=== PATIENT | male | born 1935 | race Caucasian/White ===

== ENCOUNTER → 2017-06-24 | Outpatient (CLI) | payer MEDICARE, OTHER ==
[2017-06-24 14:36] LABS: Blood Urea Nitrogen 29 mg/dL (9-20)
--- NOTE | 2017-06-25 09:32 | CT ---
EXAMINATION TYPE: CT ChestAbdPelvis w con DATE OF EXAM: 06/24/2017 COMPARISON: NONE HISTORY: Abnormal lab work and weight loss(R63.4) per order. History of stomach tumor per patient. CT DLP: 1747 mGycm. Automated Exposure Control for Dose Reduction was Utilized. CONTRAST: CT scan of the thorax, abdomen and pelvis is performed with IV Contrast, patient injected with 100 mL of Omnipaque 300. FINDINGS: LUNGS: There is mild underlying emphysematous change with patchy bibasilar lower lung scarring. No deleon spicious nodule or mass is present bilaterally. Tracheobronchial tree is patent. No pleural effusion or pneumothorax is seen bilaterally. MEDIASTINUM: There are no greater than 1 cm hilar or mediastinal lymph nodes. No cardiomegaly or pe ricardial effusion is seen. There is fairly moderate to severe 3 vessel coronary artery calcificatio n which is noted marker for coronary artery disease OTHER: No additional significant abnormality is seen. LIVER/GB: There is mild to moderate extrahepatic biliary dilatation and mild central intrahepatic enrique iary dilatation. There is abrupt narrowing at duodenal ampulla without obstructing stone or mass aj rly seen. No intraluminal CT dense gallstones are seen. There is subcentimeter low dense lesion left hepatic lo be axial image 51 that is too small to further characterize favored benign. Similar lesion is seen ne ar caudate lobe axial image 57. PANCREAS: Pancreatic duct is mildly dilated at head level measuring 5 mm coronal image 47. SPLEEN: No significant abnormality is seen. ADRENALS: No significant abnormality is seen. KIDNEYS: There is symmetric cortical medullary uptake and excretion from both kidneys with 2-3 simple appearing cysts noted bilaterally. BOWEL: The oral contrast reaches level of the proximal right colon. There is no suspicious small bow el dilatation. At the cecum there is irregular large area of wall thickening axial image 86 strongly suspicious for cecal carcinoma terminal ileum is not well-visualized. Appendix is not distinctly seen . There is mild to moderate surrounding fat stranding with scattered small suspicious lymph nodes. Th ere are adjacent abnormal lymph nodes superiorly in the right lower quadrant mesentery with central h ypodensity or necrosis, largest measures 2.0 x 1.2 cm axial image 78. There is mild to moderate diffu se fecal prominence in the colon distal to this. GENITAL ORGANS: Some scattered pelvic phleboliths are seen. LYMPH NODES: Abnormal right lower quadrant lymph nodes noted as detailed above OSSEOUS STRUCTURES: Osseous structures are demineralized. There is nonspecific small sclerotic focus right L3 vertebra coronal image 65. There are 2 subtle lytic lesions in the left iliac bone coronal i mages 76 and 81 respectively. There is narrowing and sclerosis along the sacroiliac joints bilaterally. There is moderate multileve l spurring in the thoracic spine. There is facet arthropathy lower lumbar levels. There is moderate t o advanced joint space loss in both hips. OTHER: No significant additional abnormality is seen. IMPRESSION: 1. Large primary cecal mass or neoplasm not causing significant proximal obstruction currently. Seros al spread with adjacent adenopathy is felt present. Nonspecific bone lesions as detailed above. Advi se colonoscopy follow-up to confirm. 2. Mild to moderate extrahepatic and mild central intrahepatic biliary dilatation, there is mild dila tation of pancreatic duct at head level also narrowing ampulla. Double duct sign is suspicious and un derlying ampullary mass needs to be excluded. ERCP follow-up is advised.
== END | disposition home or self-care (01) ==
LOC: RADCTMAIN 13:57
PROVIDERS: ATTEND Family Medicine
DX: K83.8 Other specified diseases of biliary tract (principal); K86.89 Other specified diseases of pancreas
CPT/HCPCS: 82565; 84520; 71260; 74177; 36415; Q9967

== ENCOUNTER 2017-07-03 11:16 | Day surgery (SDC) | payer MEDICARE, OTHER ==
[2017-07-01 16:56] VITALS: BMI 24.7
[~2017-07-03 11:16] MED LIST: LACTATED RINGERS 1,000 ML IV SCH
[2017-07-03 12:08] VITALS: RESP 18; TEMP 97
[2017-07-03] MEDS ORDERED: LIDOCAINE 1% 20 ML VIAL (10MG/ML) FOR IV START INTRADERMA ONE (12:08)
[2017-07-03] MEDS ORDERED: LIDOCAINE 1% INJ 10MG/ML (20 ML MDV) ONE (12:57)
[2017-07-03] MEDS ORDERED: PROPOFOL 10 MG/ML 20 ML VIAL IV ONE (12:57)
--- NOTE | 2017-07-03 13:27 | P.PCN ---
Date of Procedure: 07/03/17 Procedure(s) Performed: BRIEF HISTORY: Patient is a 81-year-old pleasant white male, scheduled for an elective colonoscopy as a part of evaluation of abnormal CAT scan of the abdomen that showed a cecal mass. PROCEDURE PERFORMED: Colonoscopy With biopsy. PREOPERATIVE DIAGNOSIS: Abdominal CAT scan of the abdomen showing the cecal mass. IV sedation per Anesthesia. PROCEDURE: After informed consent was obtained, the patient, was brought into the endoscopy unit. IV sedation was administered by Anesthesia under continuous monitoring. Digital rectal examination was normal. Initially the Olympus CF- 160 flexible video colonoscope was then inserted in the rectum, gradually advanced into the right colon where there was a large ulcerated mass identified and appeared to be the cecum. Multiple biopsies were done from this area. The prep was somewhat poor throughout the entire colon. Careful irrigation was performed. Mucosa of the ascending colon, transverse colon, descending colon, sigmoid colon, and rectum appeared normal. Retroflexion was performed in the rectum and no lesions were seen. The patient tolerated the procedure well. IMPRESSION: Circumferential ulcerated mass in the cecum status post multiple biopsies Rest of the colon appeared normal RECOMMENDATIONS: Findings of this examination were discussed with the patient as well as his family. He was advised to follow with the biopsy results and he' ll be seen in office early next week..
[2017-07-03 13:57] VITALS: BP 117/57; PULSE 84
== END 2017-07-03 14:24 | disposition home or self-care (01) ==
LOC: ORWHC2ENDO 11:16
PROVIDERS: ATTEND Internal Medicine Gastroenterology
DX: C18.0 Malignant neoplasm of cecum (principal); I10 Essential (primary) hypertension; E78.5 Hyperlipidemia, unspecified; G25.81 Restless legs syndrome; Z79.899 Other long term (current) drug therapy
CPT/HCPCS: 88305; 45380; J2001; J2704

== ENCOUNTER → 2017-07-06 | Outpatient (CLI) | payer MEDICARE, OTHER ==
--- NOTE | 2017-07-06 13:01 | MR ---
EXAMINATION TYPE: MR MRCP DATE OF EXAM: 07/06/2017 COMPARISON: EXAMINATION TYPE: MR MRCP DATE OF EXAM: 07/06/2017 COMPARISON: CT dated 06/24/2017 HISTORY: Intra-abdominal and pelvic swelling/mass, Increased weight loss, Abnormal CT Standard multiplanar, multisequence MRI departmental protocol Multiplanar MultiSpin echo imaging of the biliary tree and abdomen was performed. Three-dimensional t [id number] images are submitted of the biliary tree. Gallbladder and biliary tree: The gallbladder is mildly distended at 7.6 cm. No intraluminal gallston es or lesions are seen of the gallbladder. There mild dilatation of the intrahepatic central biliary tree. The common bile duct is dilated at 1.4 cm. There is also dilatation of the pancreatic duct at approximately 6 mm. At the ampulla of Vater small 7 mm lesion is suspected seen best on axial T2 fat sat data set the page 11 of 42 and coronal T2 data set page 21 of 42. Direct visualization is recomme nded. Liver: Mild hepatic steatosis. No solid hepatic lesion identified. Simple hepatic cyst left hepatic l obe medial segment measuring 7 mm. Simple cysts caudate lobe measuring 5 mm. Pancreas: No pancreatic lesion is identified. Pancreatic ductal dilatation is noted. Kidneys: Simple renal cysts noted bilaterally. No evidence for solid mass. No hydronephrosis or nephr olithiasis. Spleen: Unremarkable. Adrenal glands: Unremarkable. Abdominal aorta: Atheromatous changes without evidence for aneurysm. IMPRESSION: 1. Findings are suspicious for lesion at the ampulla of Vater. Direct visualization is recommended. 2. Mild hepatic steatosis with simple hepatic cysts. 3. Simple renal cysts identified.
== END | disposition home or self-care (01) ==
LOC: RADMRIMAIN 07:28
PROVIDERS: ATTEND Internal Medicine Gastroenterology
DX: K76.0 Fatty (change of) liver, not elsewhere classified (principal); K76.89 Other specified diseases of liver; N28.1 Cyst of kidney, acquired
CPT/HCPCS: 74181

== ENCOUNTER 2017-07-10 08:06 | Day surgery (SDC) | payer MEDICARE, OTHER ==
[2017-07-09 08:24] VITALS: BMI 24.3
[2017-07-10] MEDS ORDERED: LIDOCAINE 1% 20 ML VIAL (10MG/ML) FOR IV START INTRADERMA ONE (08:42)
[2017-07-10 08:43] VITALS: RESP 16; TEMP 97.3
[2017-07-10] MEDS ORDERED: PROPOFOL 10 MG/ML 20 ML VIAL IV ONE (09:32)
[2017-07-10] MEDS ORDERED: LIDOCAINE 1% INJ 10MG/ML (20 ML MDV) ONE (09:32)
--- NOTE | 2017-07-10 09:50 | P.PCN ---
Date of Procedure: 07/10/17 Procedure(s) Performed: BRIEF HISTORY: Patient is a 81-year-old, pleasant, white male, scheduled for an upper endoscopy as a part of evaluation of abnormal MRI/MRCP that was done last week which revealed a 7 mm lesion at the ampulla. The patient was having progressive weight loss and iron deficiency anemia and hence he initially had a CT of the abdomen and pelvis done 2 weeks ago. It revealed a cecal mass as well as dilated CBD and pancreatic duct. 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 In the meantime he had an MRCP done that showed dilated common bile duct as well as pancreatic duct and a 7 mm lesion in the ampulla. LFTs are within normal limits. His and scheduled for an upper endoscopy to evaluate for ampullary abnormality noted in recent imaging study PROCEDURE PERFORMED: Esophagogastroduodenoscopy with biopsy. PREOPERATIVE DIAGNOSIS: Abnormal MRI/MRCP showing a lesion in the ampulla and dilated biliary system. IV sedation per anesthesia. PROCEDURE: After informed consent was obtained, the patient was brought into the endoscopy unit. IV sedation was administered by Anesthesia under continuous monitoring. Initially the Olympus GIF-140 video endoscope was inserted into the mouth. Esophagus intubated without any difficulty. It was gradually advanced into the stomach and duodenum and carefully examined. The bulb and the second part of the duodenum appeared normal. The ampullary orifice was identified without any difficulty and upon careful examination and the major papula appeared somewhat prominent with friable mucosa and multiple biopsies were done from this area. No obvious polyp identified. The scope at this time was withdrawn to the stomach, adequately insufflated with air, and upon careful examination, mucosa of the antrum, body, cardia and the fundus appeared normal. The scope was then withdrawn into the esophagus. Small hiatal hernia noted. The GE junction was located at 39 cm from the incisors. There was circumferential erythema the GE junction consistent with LA grade A reflux esophagitis. The esophagus appeared normal. There were no erosions or ulcerations seen and the patient tolerated the procedure well. IMPRESSION: 1. Prominent ampulla but no obvious polyp or masses identified. 2. Small hiatal hernia and LA grade A reflux esophagitis.. RECOMMENDATIONS: The findings of this examination were discussed with the patient as well as a family. He was advised to follow with the biopsy results. In the meantime the patient has an appointment to see Dr. Liu next week for cecal adenocarcinoma.
[2017-07-10 10:12] VITALS: BP 108/59; PULSE 66
== END 2017-07-10 10:36 | disposition home or self-care (01) ==
LOC: ORWHC2ENDO 08:06
PROVIDERS: ATTEND Internal Medicine Gastroenterology
DX: D13.5 Benign neoplasm of extrahepatic bile ducts (principal); K44.9 Diaphragmatic hernia without obstruction or gangrene; K21.0 Gastro-esophageal reflux disease with esophagitis; K29.70 Gastritis, unspecified, without bleeding; C18.0 Malignant neoplasm of cecum; I10 Essential (primary) hypertension; Z79.82 Long term (current) use of aspirin; Z79.899 Other long term (current) drug therapy
CPT/HCPCS: 88305; 43239; J2001; J2704

== ENCOUNTER → 2017-08-08 | Outpatient (CLI) | payer MEDICARE, OTHER ==
--- NOTE | 2017-08-11 14:05 | PE ---
EXAMINATION TYPE: PET CT fusion skull to thigh DATE OF EXAM: 08/08/2017 COMPARISON: CT chest abdomen and pelvis June 24, 2017 HISTORY: Colorectal cancer initial staging study after surgery July 24, 2017 TECHNIQUE: Following the intravenous administration of 14.741 mCi of F-18 FDG, whole body images are performed from the skull base to the midthigh. Images are reviewed on the computer in the coronal, axial, and sagittal planes. Reconstructed rotating images are created on independent workstation and reviewed on the computer. A noncontrast CT is performed in conjunction with the PET scan. SCAN: Initial Scan FINDINGS: SKULL BASE AND NECK: No suspicious hypermetabolic uptake is present. CHEST, MEDIASTINUM, AND HILAR REGION: No suspicious hypermetabolic uptake is seen. ABDOMEN AND PELVIS: Surgical changes from partial proximal colectomy are identified near axial image 153. There is interval resection of right cecal mass or neoplasm. Mild uptake at level of sutures is presumed related to recent surgery. SUV is 5.15. No suspicious hypermetabolic uptake in abdomen or pelvis is identified. OSSEOUS STRUCTURES: No suspicious hypermetabolic uptake is seen. OTHER CT: Moderate calcified plaque bilateral carotid bulbs is present. There is fairly severe 3 vessel coronary artery calcification which is noted marker for coronary feli ry disease. Prominence of the interatrial fat is suggestive of lipomatous hypertrophy of the interart erial septum. Nonspecific subcentimeter low dense lesion left hepatic lobe axial image 129 is unchanged from recent CT. Smaller caudate lesion less well visualized. Several simple appearing cysts scattered throughout both kidneys are redemonstrated seen better on co ntrast-enhanced CT. There is new anterior vertical scar. There are few scattered pelvic phleboliths. There is moderate to severe calcified plaque of abdominal aorta extending into pelvic branch vessels. Biliary system appears less prominent on current study. There is multilevel spurring in the thoracolumbar spine. Moderate to severe joint space loss in both hips with spurring is redemonstrated. IMPRESSION: Interval partial colectomy. No suspicious residual mass or adenopathy identified to sugge st residual or metastatic neoplasm.
== END | disposition home or self-care (01) ==
LOC: RADPETMAIN 11:47
PROVIDERS: ATTEND Internal Medicine Hematology & Oncology
DX: C18.0 Malignant neoplasm of cecum (principal); Z90.49 Acquired absence of other specified parts of digestive tract
CPT/HCPCS: 78815; A9552

== ENCOUNTER → 2018-03-16 | Outpatient (CLI) | payer MEDICARE, OTHER ==
--- NOTE | 2018-03-17 00:24 | CT ---
EXAMINATION TYPE: CT ChestAbdPelvis w con DATE OF EXAM: 03/16/2018 COMPARISON: 08/08/2012 HISTORY: 82-year-old male suspected mets, hx of colon ca TECHNIQUE: Contiguous axial scanning of the chest, abdomen, and pelvis performed with IV Contrast, pa tient injected with 80 mL of Isovue 300. Delayed images through the kidneys were obtained. Coronal/sa gittal reconstructions performed. CT DLP: 1020.3 mGycm Automated exposure control for dose reduction was used. FINDINGS: Chest: Heart normal size without pericardial effusion. Mitral annular calcifications are present as well as coronary vessel calcification. Ectatic ascending aorta 3.6 cm with endovaginal arch vessel branching anatomy and mild atheroscleroti c arch calcifications. Scattered nonenlarged mediastinal lymph nodes. No thoracic lymphadenopathy by CT size criteria. Strandy atelectasis and interstitial scarring in the visualized lung bases. Some mild bibasilar bronc hiectasis is noted. No consolidation or pleural effusion. ABDOMEN: Stable subcentimeter hypodensity anterior left liver lobe too small for accurate CT characterization, likely tiny cyst. Stable mild biliary ductal dilatation. No abnormal distention of the gallbladder. Portal venous syste m is patent. There are some focal soft tissue thickening extending anterior from the pancreatic head measuring 3.2 x 1.0 cm, refer to axial image C7. This density seems to have been present on the patient's PET/CT but is decreased from that time, possible postsurgical change. Adrenal glands, spleen, and pancreas appear within normal limits. There is a diverticulum of the seco nd portion of the duodenum projecting into the pancreatic head region. Bilateral renal cysts are redemonstrated, measuring up to 3.6 cm on the right and 2.5 cm on the left. Symmetric uptake and excretion of contrast from both kidneys. No dilated small bowel, free fluid, or free air. Moderate prostatic calcifications throughout the abdominal aorta and iliac arteries. Surgical incisio nal changes along the anterior abdomen. Interval partial right hemicolectomy with a ileocolonic anastomosis at the level of the hepatic flexu re/proximal transverse colon. No abnormal mass or mesenteric/retroperitoneal lymphadenopathy is ident ified. Oral contrast has progressed to the mid transverse colon. There is moderate stool burden and s tool distending the rectum up to 6.0 cm wide. No pericolonic inflammatory change. Pelvis: Bladder is urine distended. Prostate gland measures 4 cm wide. No abnormal fluid collection in the pe lvis or pelvic lymphadenopathy. Bones: Degenerative changes at the hips and SI joints as well as the lower leg lumbar spine. Endplate spondy losis throughout the thoracic spine. No osseous process. Accentuated lower thoracic kyphosis. IMPRESSION: 1. STATUS POST PARTIAL RIGHT HEMICOLECTOMY WITH ILEOCOLONIC ANASTOMOSIS AT THE LEVEL OF THE PROXIMAL TRANSVERSE COLON. 2. SOME FOCAL ELONGATED SOFT TISSUE THICKENING EXTENDING ANTERIORLY FROM THE PANCREATIC HEAD PROBABLY REPRESENTS POSTSURGICAL CHANGE/SCAR IT WAS PRESENT ON THE 08/08/2017 PET/CT AND IS DECREASED FROM THAT TIME. IT CAN BE REASSESSED AT FOLLOW-UP. 3. NO RECURRENT MASS OR SUSPICIOUS LYMPHADENOPATHY SEEN.
== END | disposition home or self-care (01) ==
LOC: RADCTMAIN 13:51
PROVIDERS: ATTEND Internal Medicine Hematology & Oncology
DX: C18.2 Malignant neoplasm of ascending colon (principal); K86.89 Other specified diseases of pancreas; Z98.890 Other specified postprocedural states
CPT/HCPCS: 82565; 84520; 71260; 74177; 36415; Q9967

== ENCOUNTER → 2018-05-21 | Outpatient (CLI) | payer MEDICARE, OTHER ==
--- NOTE | 2018-05-21 14:33 | CT ---
EXAMINATION TYPE: CT ChestAbdPelvis w con DATE OF EXAM: 05/21/2018 COMPARISON: CT chest abdomen and pelvis March 16, [address] June 24, 2017. PET CT August 08, 2017. HISTORY: colon ca suspect mets CT DLP: 1659 mGycm. Automated Exposure Control for Dose Reduction was Utilized. CONTRAST: CT scan of the thorax, abdomen and pelvis is performed with IV Contrast, patient injected with 100 mL of Isovue 300. FINDINGS: LUNGS: Some scattered bibasilar linear atelectasis and/or scarring is redemonstrated. No new suspicio us nodules or masses are seen. No pleural effusion or pneumothorax is noted. MEDIASTINUM: There are no greater than 1 cm hilar or mediastinal lymph nodes. No cardiomegaly or pe ricardial effusion is seen. Coronary artery calcification is redemonstrated which is noted marker fo r coronary artery disease. OTHER: No additional significant abnormality is seen. LIVER/GB: Subcentimeter low dense lesion anterior left hepatic lobe axial image 20 is stable and too small to further characterize. Biliary ductal system is stable and mildly prominent. PANCREAS: Irregular soft tissue to the right anterior aspect of the pancreatic head axial image 33 me asuring 2.2 x 0.6 cm is not significantly changed from other studies and likely reflects surgical sca rring. SPLEEN: No significant abnormality is seen. ADRENALS: No significant abnormality is seen. KIDNEYS: There are numerous simple appearing thin-walled cysts scattered throughout both kidneys.. BOWEL: Small size hiatal hernia is redemonstrated. There are oral contrast reaches level of mid trans verse colon. Surgical changes from right-sided hemicolectomy are redemonstrated. There is no suspicio us new small or large bowel dilatation. GENITAL ORGANS: No gross abnormality seen. LYMPH NODES: No greater than 1cm abdominal or pelvic lymph nodes are appreciated. OSSEOUS STRUCTURES: No significant abnormality is seen. OTHER: No significant additional abnormality is seen. IMPRESSION: No suspicious new mass or adenopathy is seen to suggest neoplastic recurrence.
== END | disposition home or self-care (01) ==
LOC: RADCTMAIN 10:30
PROVIDERS: ATTEND Internal Medicine Hematology & Oncology
DX: Z03.89 Encounter for observation for other suspected diseases and conditions ruled out (principal); C18.2 Malignant neoplasm of ascending colon
CPT/HCPCS: 82565; 84520; 71260; 74177; 36415; Q9967

== ENCOUNTER 2018-06-12 14:03 | Inpatient (IN) | payer MEDICARE, OTHER ==
[2018-06-12] MEDS ORDERED: HYDROmorphone 1 MG/ML 1 ML SYRINGE IVP STA (14:09)
[2018-06-12] MEDS ORDERED: SODIUM CHLORIDE 0.9% 1,000 ML IV STA ×3 (14:09→18:35)
--- NOTE | 2018-06-12 14:11 | ED ---
Chest Pain HPI - General Stated Complaint: Chest pain Time Seen by Provider: 06/12/18 14:09 Source: RN notes reviewed, old records reviewed - History of Present Illness Initial Comments: This is a 82-year-old male the ER for evasive chest pain. Patient has severe anterior chest pain starting about 2 hours prior to arrival. Patient presents today with continued chest pain, presents by EMS. EKG gave nitro and pain control prior to arrival. Patient states chest pain is persistent. He has no history of heart disease but does have history of high blood pressure. No shortness of breath, patient had no significant diaphoresis. No prior history of similar pain. No bowel pain no nausea vomiting MD Complaint: chest pain -: hour(s) (2) Onset: during rest Pain Location: substernal Pain Radiation: none Severity: severe Severity scale (1-10): 9 Quality: tightness, sharp Consistency: constant Improves With: nothing Worsens With: nothing Context: recent surgery (She has had surgery for colon cancer but not recently) Anginal Symptoms: nausea Treatments Prior to Arrival: none - Related Data Home Medications Medication Instructions Recorded Confirmed Atorvastatin [Lipitor] 20 mg PO DAILY@1700 03/29/15 06/12/18 Lisinopril-Hctz 20-25 mg 1 each PO DAILY@1700 03/29/15 06/12/18 [Zestoretic 20-25] Aspirin [Adult Low Dose Aspirin EC] 81 mg PO 07/09/17 Cranberry Fruit Extract [Cranberry] 200 mg PO DAILY 06/12/18 06/12/18 Multivitamins, Thera [Multivitamin 1 tab PO DAILY 06/12/18 06/12/18 (formulary)] Omeprazole 20 mg PO DAILY 06/12/18 06/12/18 Allergies Allergy/AdvReac Type Severity Reaction Status Date / Time No Known Allergies Allergy Verified 06/12/18 14:49 Review of Systems ROS Statement: Those systems with pertinent positive or pertinent negative responses have been documented in the HPI. ROS Other: All systems not noted in ROS Statement are negative. EKG Findings - EKG Comments: EKG Findings:: EKG shows junctional rhythm rate of 90, [place] unavailable, QRS 90, QTc 491. no significant morphological changes. Repeat. EKG shows a rhythm rate of 127, QRS 80, QTC 457 Past Medical History Past Medical History: Hyperlipidemia, Hypertension Additional Past Medical History / Comment(s): ANEMIA, restless leg, no appetite & weight loss, pts states tumor found with colonoscopy . History of Any Multi-Drug Resistant Organisms: None Reported Past Surgical History: Back Surgery, Joint Replacement, Orthopedic Surgery Additional Past Surgical History / Comment(s): BILATERAL KNEE REPLACEMENTS, 2 FATTY TUMORS REMOVED FROM STOMACH Past Anesthesia/Blood Transfusion Reactions: No Reported Reaction Past Psychological History: No Psychological Hx Reported Smoking Status: Former smoker Past Alcohol Use History: None Reported Additional Past Alcohol Use History / Comment(s): quit smoking 25 yrs. ago, < ppd 10 yrs. on & off Past Drug Use History: None Reported - Past Family History Mother Family Medical History: No Reported History General Exam - General Exam Comments Initial Comments: Diaphoretic, severe pain, positive Cullen sign General appearance: alert, anxious, in distress Head exam: Present: atraumatic, normocephalic, normal inspection Eye exam: Present: normal appearance, PERRL, EOMI. Absent: scleral icterus, conjunctival injection, periorbital swelling ENT exam: Present: normal exam, mucous membranes moist Neck exam: Present: normal inspection. Absent: tenderness, meningismus, lymphadenopathy Respiratory exam: Present: normal lung sounds bilaterally. Absent: respiratory distress, wheezes, rales, rhonchi, stridor Cardiovascular Exam: Present: regular rate, normal rhythm, normal heart sounds. Absent: systolic murmur, diastolic murmur, rubs, gallop, clicks GI/Abdominal exam: Present: soft, normal bowel sounds. Absent: distended, tenderness, guarding, rebound, rigid Extremities exam: Present: normal inspection, full ROM, normal capillary refill. Absent: tenderness, pedal edema, joint swelling, calf tenderness Back exam: Present: normal inspection Neurological exam: Present: alert, oriented X3, CN II-XII intact Psychiatric exam: Present: normal affect, normal mood Skin exam: Present: warm, dry, intact, normal color. Absent: rash Course Vital Signs 06/12/18 06/12/18 06/12/18 14:05 14:10 14:13 Temperature 97.6 F Pulse Rate 86 91 Pulse Rate [ 91 Basket Turner ] Respiratory 24 24 Rate Blood Pressure 108/66 131/72 O2 Sat by Pulse 98 100 Oximetry 01/19/19 01/19/19 01/19/19 14:15 15:18 16:00 Temperature 98.8 F 100.1 F H Pulse Rate 84 114 H 121 H Pulse Rate [ Basket Turner ] Respiratory 22 20 20 Rate Blood Pressure 118/57 149/78 O2 Sat by Pulse 100 99 99 Oximetry 06/12/18 17:05 Temperature Pulse Rate 111 H Pulse Rate [ Basket Turner ] Respiratory 16 Rate Blood Pressure 149/78 O2 Sat by Pulse 99 Oximetry - Reevaluation(s) Reevaluation #1: 06/12/18 14:00 Medical record is reviewed and noncontributory Blood pressures checked in both arms secondary to severe chest pain Reevaluation #2: 06/12/18 14:57 Patient does have improved chest pain with pain control currently Reevaluation #5: 06/12/18 17:22 CTA of chest is negative for acute disease chest and pelvis, no dissection, ultrasound gallbladder negative Chest Pain MDM - MDM 82 male the ER for evaluation of severe sudden onset of chest pain. Patient with positive Cullen sign negative troponin and EKG 2 mildly abnormal gallbladder with abscess, patient will be seen by his primary surgeon as well as cardiology. Critical Care Time Critical Care Time: Yes Total Critical Care Time: 31 Disposition Clinical Impression: Chest pain, Abdominal pain Disposition: ADMITTED IP TO THIS [facility] Condition: Good Instructions: Chest Pain (ED) Is patient prescribed a controlled substance at d/c from ED?: No Referrals: Nonstaff,Physician [Primary Care Provider] - 1-2 days
[2018-06-12] MEDS ORDERED: ONDANSETRON 4 MG/2 ML VIAL IVP STA (14:13)
[2018-06-12] MEDS: SODIUM CHLORIDE 0.9% 1,000 ML IV STA ×2 (14:16→20:32)
[2018-06-12 15:09] LABS: Basophils % (A) 0 %; Eosinophils # (A) 0.1 k/uL (0-0.7); Eosinophils % (A) 1 %; HCT 37.2 % (39.0-53.0); HGB 11.8 gm/dL (13.0-17.5); Lymphocytes # (A) 0.3 k/uL (1.0-4.8); Lymphocytes % (A) 3 %; MCH 29.6 pg (25.0-35.0); MCHC 31.8 g/dL (31.0-37.0); Mean Platelet Volume 6.5; Monocytes # (A) 0.2 k/uL (0-1.0); Monocytes % (A) 2 %; Neutrophils # (A) 9.2 k/uL (1.3-7.7); Neutrophils % (A) 94 %; Platelet Count 134 k/uL (150-450); RDW 13.7 % (11.5-15.5); WBC 9.8 k/uL (3.8-10.6)
--- NOTE | 2018-06-12 15:20 | CT ---
EXAMINATION TYPE: CT angio thor/abd pel aorta DATE OF EXAM: 06/12/2018 COMPARISON: HISTORY: Chest pain CT DLP: 1526.3 mGycm. Automated Exposure Control for Dose Reduction was Utilized. CONTRAST: CT scan of the thorax, abdomen and pelvis is performed without and with IV Contrast, patient injected with 100 ml mL of Isovue 370. FINDINGS: VESSELS: The ascending and descending thoracic aorta without evidence of aneurysmal dilatation or urban rowing. Normal three-vessel aortic arch. The abdominal aorta demonstrates calcified atheromatous plaq uing without evidence of aneurysmal dilatation or narrowing. The origin of the SMA and celiac trunk a re patent. The PREMA is also identified and patent. The internal and external iliac arteries are within normal limits. The visualized portions of the bilateral common femoral and femoral arteries are hawkins nt. Calcified atheromatous plaquing is seen throughout the course of the infrarenal abdominal aorta. The bilateral single renal arteries are patent. LUNGS: The lungs are grossly clear, there is no concerning parenchymal mass or nodule identified. T here is no pleural effusion or pneumothorax seen. The tracheobronchial tree is patent. MEDIASTINUM: There are no greater than 1 cm hilar or mediastinal lymph nodes. No pericardial effusi on is seen. OTHER: No additional significant abnormality is seen. LIVER/GB: No significant abnormality is appreciated. Stable mild biliary ductal dilatation. PANCREAS: The pancreas is slightly atrophic with mild prominence of the main pancreatic duct, which i s stable in the interval. SPLEEN: No significant abnormality is seen. ADRENALS: No significant abnormality is seen. KIDNEYS: No significant abnormality is seen. Multiple stable bilateral renal cysts. BOWEL: Evidence of postsurgical changes of the bowel likely reflecting a left hemicolectomy. Surgical janell are seen midline. GENITAL ORGANS: No gross abnormality seen. LYMPH NODES: No greater than 1cm abdominal or pelvic lymph nodes are appreciated. OSSEOUS STRUCTURES: No significant abnormality is seen. OTHER: Hyperdense material is seen within the dependent portion of the stomach which is a present on the unenhanced portion of the study. This is likely related to ingested material. IMPRESSION: 1. No evidence of thoracic or abdominal aortic dissection or aneurysm. 2. Calcified atheromatous plaquing throughout the visualized vessels. 3. Postsurgical changes of the abdomen and bowel. 4. Stable old mild intrahepatic biliary ductal dilatation. 5 . Stable appearance of the pancreas with mild atrophy and pancreatic dilatation.
[2018-06-12 15:21] LABS: Creatine Kinase 32 U/L (55-170)
[2018-06-12 15:23] LABS: Albumin 3.6 g/dL (3.5-5.0); Calcium 9.6 mg/dL (8.4-10.2); Magnesium 1.8 mg/dL (1.6-2.3); Phosphorus 3.3 mg/dL (2.5-4.5); Potassium 4.2 mmol/L (3.5-5.1); Total Protein 6.5 g/dL (6.3-8.2)
[2018-06-12] MEDS ORDERED: KETOROLAC 30 MG/ML 1 ML VIAL IVP STA (15:24)
[2018-06-12] MEDS ORDERED: HYDROmorphone 0.5 MG/0.5 ML SYRINGE IVP STA (15:24)
[2018-06-12 15:32] LABS: Partial Thromboplastin Time 21.8 sec (22.0-30.0); Prothrombin Time 10.4 sec (9.0-12.0)
[2018-06-12 15:34] LABS: Creatine Kinase MB 0.4 ng/mL (0.0-2.4); Troponin I <0.012 ng/mL (0.000-0.034)
[2018-06-12 15:35] LABS: D-Dimer 0.91 mg/L FEU (<0.60)
[2018-06-12] MEDS ORDERED: AMPICILLIN-SULBACTAM 3 GM in SODIUM CHLORIDE 0.9% 100 ML IVPB STA (16:17)
[2018-06-12] MEDS ORDERED: ACETAMINOPHEN IV (For NPO) 1,000 MG in EMPTY BAG 1 BAG IVPB STA (16:59)
--- NOTE | 2018-06-12 17:04 | US ---
EXAMINATION TYPE: US gallbladder DATE OF EXAM: 06/12/2018 COMPARISON: CT 2019 CLINICAL HISTORY: Pain. Chest and abdomen pain x 1 day, patient not NPO, ate 4 hours prior to exam, h istory of colon CA EXAM MEASUREMENTS: Liver Length: 16.5 cm Gallbladder Wall: 0.2 cm CBD: 0.9 cm Right Kidney: 9.8 x 5.1 x 4.3 cm Pancreas: limited by overlying midline bowel gas Liver: mild ductal dilatation Gallbladder: wnl Evidence for sonographic Dawson's sign: no CBD: Normal for patient's age. Right Kidney: 3.3 x 3.4 x 3.0cm hypoechoic area inferior pole consistent with a renal cyst IMPRESSION: 1. No concerning sonographic findings of the right upper quadrant. 2. No sonographic evidence of cholecystitis. 3. Right inferior pole renal cyst.
[2018-06-12] MEDS ORDERED: ASPIRIN 81 MG PO STA (17:19)
[2018-06-12] MEDS ORDERED: HEPARIN SODIUM,PORCINE 5,000 UNIT/ML 1 ML VIAL IV ONE (17:19)
[2018-06-12] MEDS ORDERED: HEPARIN SODIUM,PORCINE 5,000 UNIT/ML 1 ML VIAL IV PRN (17:19)
[2018-06-12] MEDS ORDERED: HYDROmorphone 1 MG/ML 1 ML SYRINGE IVP PRN (17:19)
[2018-06-12] MEDS ORDERED: HEPARIN SOD,PORK IN 0.45% NACL 25,000 UNIT in 0.45% NACL 1 250ML.BAG IV SCH (17:30)
[2018-06-12] MEDS ORDERED: SODIUM CHLORIDE 0.9% 500 ML 500 ML IV STA (18:35)
[2018-06-12] MEDS ORDERED: SODIUM CHLORIDE 0.9% 2,000 ML IV ONE (19:07)
[2018-06-12 20:29] VITALS: BMI 26.4
[2018-06-12] MEDS: SODIUM CHLORIDE 0.9% 1,000 ML IV SCH (20:33)
[2018-06-12 22:08] LABS: Creatine Kinase MB 1.3 ng/mL (0.0-2.4)
[2018-06-12 22:17] LABS: Troponin I 0.041 ng/mL (0.000-0.034)
[2018-06-12] MEDS: AMPICILLIN-SULBACTAM 3 GM in SODIUM CHLORIDE 0.9% 100 ML IVPB SCH (23:28)
[2018-06-13] MEDS: SODIUM CHLORIDE 0.9% 1,000 ML IV SCH ×2 (03:22→17:13)
[2018-06-13 03:47] LABS: Creatine Kinase MB 3.1 ng/mL (0.0-2.4)
[2018-06-13 03:53] LABS: Troponin I 0.048 ng/mL (0.000-0.034)
[2018-06-13] MEDS: AMPICILLIN-SULBACTAM 3 GM in SODIUM CHLORIDE 0.9% 100 ML IVPB SCH ×2 (05:00→11:21)
[2018-06-13 05:39] LABS: Mean Platelet Volume 6.6
[2018-06-13 05:53] LABS: Cholesterol 76 mg/dL (<200); HDL Cholesterol 38 mg/dL (40-60); LDL Cholesterol,Calculated 30 mg/dL (0-99); Triglycerides 41 mg/dL (<150)
[2018-06-13 05:58] LABS: Platelet Count 83 k/uL (150-450)
[2018-06-13] MEDS: ASPIRIN 325 MG TAB PO SCH (12:33)
[2018-06-13] MEDS: ATORVASTATIN 80 MG TAB PO SCH (12:33)
--- NOTE | 2018-06-13 14:00 | P.GSCN ---
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 He presented with acute onset chest pain to the emergency room. He was found to have elevated LFTs and bilirubin. 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 Ultrasound and CT showed no acute pathology in the gallbladder. He did have mild dilation of his biliary ducts which is consistent and unchanged from previous CTs. He still complains of some chest pain. He denies any abdominal pain he denies any change in bowel movements he denies any nausea or vomiting. He denies any sick contacts. He recently was out to eat at a [email or web address] restaurant no one else that was with him was ill during this time. No other complaints at this time. Past Medical History Past Medical History: Hyperlipidemia, Hypertension Additional Past Medical History / Comment(s): restless leg before chemo, havent had in weeks. History of Any Multi-Drug Resistant Organisms: None Reported Past Surgical History: Back Surgery, Joint Replacement, Orthopedic Surgery Additional Past Surgical History / Comment(s): BILATERAL KNEE REPLACEMENTS, 2 FATTY TUMORS REMOVED FROM STOMACH, had colon cancer with surgical removal and chemo. last chemo was 4 weeks ago. Past Anesthesia/Blood Transfusion Reactions: No Reported Reaction Past Psychological History: No Psychological Hx Reported Smoking Status: Former smoker Past Alcohol Use History: None Reported Additional Past Alcohol Use History / Comment(s): quit smoking 40 yrs. ago, < ppd 10 yrs. on & off Past Drug Use History: None Reported - Past Family History Mother Family Medical History: No Reported History Medications and Allergies Home Medications Medication Instructions Recorded Confirmed Type Atorvastatin [Lipitor] 20 mg PO DAILY@1700 03/29/15 06/12/18 History Lisinopril-Hctz 20-25 mg 1 each PO DAILY@1700 03/29/15 06/12/18 History [Zestoretic 20-25] Aspirin [Adult Low Dose Aspirin EC] 81 mg PO 07/09/17 History Cranberry Fruit Extract [Cranberry] 200 mg PO DAILY 06/12/18 06/12/18 History Multivitamins, Thera [Multivitamin 1 tab PO DAILY 06/12/18 06/12/18 History (formulary)] Omeprazole 20 mg PO DAILY 06/12/18 06/12/18 History Allergies Allergy/AdvReac Type Severity Reaction Status Date / Time No Known Allergies Allergy Verified 06/12/18 14:49 Surgical - Exam Osteopathic Statement: *. No significant issues noted on an osteopathic structural exam other than those noted in the History and Physical/Consult. Vital Signs Temp Pulse Resp BP Pulse Ox 97.6 F 86 24 108/66 98 06/12/18 14:05 06/12/18 14:05 06/12/18 14:05 06/12/18 14:05 06/12/18 14:05 - General well developed, well nourished, no distress - Neck trachea midline - Respiratory normal expansion, normal respiratory effort - Cardiovascular Rhythm: regular - Abdomen Abdomen: soft, non tender - Neurologic normal coordination, normal sensation - Psychiatric oriented to time, oriented to person, oriented to place Results - Labs 06/13/18 05:16 06/12/18 14:50 Abnormal Lab Results - Last 24 Hours (Table) 06/12/18 06/12/18 06/12/18 Range/Units 14:50 14:50 14:50 RBC 4.00 L (4.30-5.90) m/uL Hgb 11.8 L (13.0-17.5) gm/dL Hct 37.2 L (39.0-53.0) % Plt Count 134 L (150-450) k/uL Neutrophils # 9.2 H (1.3-7.7) k/uL Lymphocytes # 0.3 L (1.0-4.8) k/uL APTT (22.0-30.0) sec D-Dimer (<0.60) mg/L FEU BUN 25 H (9-20) mg/dL Glucose 167 H (74-99) mg/dL Plasma Lactic Acid Terrell (0.7-2.0) mmol/L Total Bilirubin 2.0 H (0.2-1.3) mg/dL AST 178 H (17-59) U/L ALT 171 H (21-72) U/L Alkaline Phosphatase 288 H (38-126) U/L Total Creatine Kinase 32 L (55-170) U/L CK-MB (CK-2) (0.0-2.4) ng/mL Troponin I (0.000-0.034) ng/mL HDL Cholesterol (40-60) mg/dL 06/12/18 06/12/18 06/12/18 Range/Units 14:50 14:50 17:35 RBC (4.30-5.90) m/uL Hgb (13.0-17.5) gm/dL Hct (39.0-53.0) % Plt Count (150-450) k/uL Neutrophils # (1.3-7.7) k/uL Lymphocytes # (1.0-4.8) k/uL APTT 21.8 L (22.0-30.0) sec D-Dimer 0.91 H (<0.60) mg/L FEU BUN (9-20) mg/dL Glucose (74-99) mg/dL Plasma Lactic Acid Terrell 4.3 H* 2.6 H* (0.7-2.0) mmol/L Total Bilirubin (0.2-1.3) mg/dL AST (17-59) U/L ALT (21-72) U/L Alkaline Phosphatase (38-126) U/L Total Creatine Kinase (55-170) U/L CK-MB (CK-2) (0.0-2.4) ng/mL Troponin I (0.000-0.034) ng/mL HDL Cholesterol (40-60) mg/dL 06/12/18 06/12/18 06/12/18 Range/Units 21:16 22:34 22:34 RBC (4.30-5.90) m/uL Hgb (13.0-17.5) gm/dL Hct (39.0-53.0) % Plt Count (150-450) k/uL Neutrophils # (1.3-7.7) k/uL Lymphocytes # (1.0-4.8) k/uL APTT 62.5 H (22.0-30.0) sec D-Dimer (<0.60) mg/L FEU BUN (9-20) mg/dL Glucose (74-99) mg/dL Plasma Lactic Acid Terrell 2.6 H* (0.7-2.0) mmol/L Total Bilirubin (0.2-1.3) mg/dL AST (17-59) U/L ALT (21-72) U/L Alkaline Phosphatase (38-126) U/L Total Creatine Kinase (55-170) U/L CK-MB (CK-2) (0.0-2.4) ng/mL Troponin I 0.041 H* (0.000-0.034) ng/mL HDL Cholesterol (40-60) mg/dL 06/13/18 06/13/18 06/13/18 Range/Units 02:41 05:16 05:16 RBC (4.30-5.90) m/uL Hgb (13.0-17.5) gm/dL Hct (39.0-53.0) % Plt Count 83 L (150-450) k/uL Neutrophils # (1.3-7.7) k/uL Lymphocytes # (1.0-4.8) k/uL APTT 65.7 H (22.0-30.0) sec D-Dimer (<0.60) mg/L FEU BUN (9-20) mg/dL Glucose (74-99) mg/dL Plasma Lactic Acid Terrell (0.7-2.0) mmol/L Total Bilirubin (0.2-1.3) mg/dL AST (17-59) U/L ALT (21-72) U/L Alkaline Phosphatase (38-126) U/L Total Creatine Kinase (55-170) U/L CK-MB (CK-2) 3.1 H (0.0-2.4) ng/mL Troponin I 0.048 H* (0.000-0.034) ng/mL HDL Cholesterol (40-60) mg/dL 06/13/18 Range/Units 05:16 RBC (4.30-5.90) m/uL Hgb (13.0-17.5) gm/dL Hct (39.0-53.0) % Plt Count (150-450) k/uL Neutrophils # (1.3-7.7) k/uL Lymphocytes # (1.0-4.8) k/uL APTT (22.0-30.0) sec D-Dimer (<0.60) mg/L FEU BUN (9-20) mg/dL Glucose (74-99) mg/dL Plasma Lactic Acid Terrell (0.7-2.0) mmol/L Total Bilirubin (0.2-1.3) mg/dL AST (17-59) U/L ALT (21-72) U/L Alkaline Phosphatase (38-126) U/L Total Creatine Kinase (55-170) U/L CK-MB (CK-2) (0.0-2.4) ng/mL Troponin I (0.000-0.034) ng/mL HDL Cholesterol 38 L (40-60) mg/dL Diabetes panel 06/12/18 06/13/18 Range/Units 14:50 05:16 Sodium 138 (137-145) mmol/L Potassium 4.2 (3.5-5.1) mmol/L Chloride 104 (98-107) mmol/L Carbon Dioxide 22 (22-30) mmol/L BUN 25 H (9-20) mg/dL Creatinine 1.06 (0.66-1.25) mg/dL Glucose 167 H (74-99) mg/dL Calcium 9.6 (8.4-10.2) mg/dL AST 178 H (17-59) U/L ALT 171 H (21-72) U/L Alkaline Phosphatase 288 H (38-126) U/L Total Protein 6.5 (6.3-8.2) g/dL Albumin 3.6 (3.5-5.0) g/dL Triglycerides 41 (<150) mg/dL HDL Cholesterol 38 L (40-60) mg/dL Calcium panel 06/12/18 Range/Units 14:50 Calcium 9.6 (8.4-10.2) mg/dL Phosphorus 3.3 (2.5-4.5) mg/dL Albumin 3.6 (3.5-5.0) g/dL Pituitary panel 06/12/18 Range/Units 14:50 Sodium 138 (137-145) mmol/L Potassium 4.2 (3.5-5.1) mmol/L Chloride 104 (98-107) mmol/L Carbon Dioxide 22 (22-30) mmol/L BUN 25 H (9-20) mg/dL Creatinine 1.06 (0.66-1.25) mg/dL Glucose 167 H (74-99) mg/dL Calcium 9.6 (8.4-10.2) mg/dL Adrenal panel 06/12/18 Range/Units 14:50 Sodium 138 (137-145) mmol/L Potassium 4.2 (3.5-5.1) mmol/L Chloride 104 (98-107) mmol/L Carbon Dioxide 22 (22-30) mmol/L BUN 25 H (9-20) mg/dL Creatinine 1.06 (0.66-1.25) mg/dL Glucose 167 H (74-99) mg/dL Calcium 9.6 (8.4-10.2) mg/dL Total Bilirubin 2.0 H (0.2-1.3) mg/dL AST 178 H (17-59) U/L ALT 171 H (21-72) U/L Alkaline Phosphatase 288 H (38-126) U/L Total Protein 6.5 (6.3-8.2) g/dL Albumin 3.6 (3.5-5.0) g/dL Assessment and Plan Assessment: Acute chest pain Elevated LFTs and bilirubin Plan: Patient does have mild elevation of LFTs and bilirubin. He has been seen by GI before in the past and had a tubular adenoma noted at the ampulla. I do recommend evaluation per GI. We'll obtain hepatitis panel as well. There was no acute pathology seen on ultrasound or CT for the gallbladder. I do not see an indication for acute surgical intervention at this time. Cardiology is also seeing the patient regarding his chest pain.
[2018-06-13] MEDS: NITROGLYCERIN SL TABS 0.4 MG TAB SUBLINGUAL PRN ×2 (14:07→14:12)
[2018-06-13] MEDS ORDERED: HYDROmorphone 0.5 MG/0.5 ML SYRINGE IVP PRN ×2 (14:17→14:21)
--- NOTE | 2018-06-13 14:30 | P.CRDCN ---
History of Present Illness Consult date: 06/13/18 Chief complaint: Chest pain History of present illness: This is a pleasant male patient with a past medical history significant for hypertension and dyslipidemia presented to the emergency room complaining of chest discomfort. The patient was in his usual state of health yesterday when he was sitting working on his computer when he started experiencing discomfort in the chest, as a pressure across the chest, without any radiation to the arm or neck or shoulders but it was associated with shortness of breath. The patient was brought to the emergency room by his family. Subsequently the chest discomfort gets better but he is experiencing chest discomfort around 6/10 in intensity right now. The patient does have hypertension and dyslipidemia. No history of coronary artery disease. 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 The EKG showed sinus rhythm with first-degree AV block and sinus tachycardia. No ischemic ST or T-wave abnormalities noted. The first set of cardiac enzymes came in to be normal but the second 2 sets came in to be slightly abnormal. The patient underwent a CTA of the chest and that showed no evidence of dissection but there is no comments regarding PE. Past Medical History Past Medical History: Hyperlipidemia, Hypertension Additional Past Medical History / Comment(s): restless leg before chemo, havent had in weeks. History of Any Multi-Drug Resistant Organisms: None Reported Past Surgical History: Back Surgery, Joint Replacement, Orthopedic Surgery Additional Past Surgical History / Comment(s): BILATERAL KNEE REPLACEMENTS, 2 FATTY TUMORS REMOVED FROM STOMACH, had colon cancer with surgical removal and chemo. last chemo was 4 weeks ago. Past Anesthesia/Blood Transfusion Reactions: No Reported Reaction Past Psychological History: No Psychological Hx Reported Smoking Status: Former smoker Past Alcohol Use History: None Reported Additional Past Alcohol Use History / Comment(s): quit smoking 40 yrs. ago, < ppd 10 yrs. on & off Past Drug Use History: None Reported - Past Family History Mother Family Medical History: No Reported History Medications and Allergies Home Medications Medication Instructions Recorded Confirmed Type Atorvastatin [Lipitor] 20 mg PO DAILY@1700 03/29/15 06/12/18 History Lisinopril-Hctz 20-25 mg 1 each PO DAILY@1700 03/29/15 06/12/18 History [Zestoretic 20-25] Aspirin [Adult Low Dose Aspirin EC] 81 mg PO 07/09/17 History Cranberry Fruit Extract [Cranberry] 200 mg PO DAILY 06/12/18 06/12/18 History Multivitamins, Thera [Multivitamin 1 tab PO DAILY 06/12/18 06/12/18 History (formulary)] Omeprazole 20 mg PO DAILY 06/12/18 06/12/18 History Allergies Allergy/AdvReac Type Severity Reaction Status Date / Time No Known Allergies Allergy Verified 06/12/18 14:49 Physical Exam Vitals: Vital Signs Temp Pulse Pulse Resp BP BP Pulse Ox 06/13/18 11:15 99.6 F 90 16 107/62 95 06/13/18 08:30 99.4 F 94 16 112/60 96 06/13/18 04:00 99.6 F 91 18 95/55 97 06/13/18 00:00 98.7 F 113 H 18 123/50 97 06/12/18 20:00 99.2 F 116 H 18 96/55 96 06/12/18 19:25 99.2 F 112 H 18 103/57 99 06/12/18 19:11 74/59 06/12/18 18:51 99.2 F 116 H 19 96/55 96 06/12/18 18:20 18 78/41 99 06/12/18 18:05 67/40 06/12/18 18:00 99.8 F H 110 H 18 99 06/12/18 17:05 111 H 16 149/78 99 06/12/18 16:00 100.1 F H 121 H 20 99 06/12/18 15:18 98.8 F 114 H 20 149/78 99 Intake and Output 06/12/18 06/13/18 06/13/18 22:59 06:59 14:59 Intake Total 1999 Balance 1999 900 Intake: Amount of Fluid Infused ( 2000 ml) Intake, IV Titration 900 Amount Ampicillin-Sulbactam 3 gm 100 In Sodium Chloride 0.9% 100 ml @ 200 mls/hr IVPB Q6HR VIDAL Rx#:[id number] Sodium Chloride 0.9% 1, 800 000 ml @ 100 mls/hr IV . Q10H VIDAL Rx#:[id number] Other: Voiding Method Toilet Toilet Toilet # Voids 1 2 Weight 83.4 kg 84 kg - Constitutional General appearance: no acute distress - Respiratory Respiratory: bilateral: CTA - Cardiovascular Rhythm: regular Heart sounds: normal: S1, S2 Results 06/13/18 05:16 06/12/18 14:50 Cardiac Enzymes 06/12/18 06/12/18 06/12/18 Range/Units 14:50 14:50 21:16 AST 178 H (17-59) U/L CK-MB (CK-2) 0.4 1.3 (0.0-2.4) ng/mL Troponin I <0.012 0.041 H* (0.000-0.034) ng/mL 06/13/18 Range/Units 02:41 AST (17-59) U/L CK-MB (CK-2) 3.1 H (0.0-2.4) ng/mL Troponin I 0.048 H* (0.000-0.034) ng/mL Coagulation 06/12/18 06/12/18 06/13/18 Range/Units 14:50 22:34 05:16 PT 10.4 (9.0-12.0) sec APTT 21.8 L 62.5 H 65.7 H (22.0-30.0) sec Lipids 06/13/18 Range/Units 05:16 Triglycerides 41 (<150) mg/dL Cholesterol 76 (<200) mg/dL HDL Cholesterol 38 L (40-60) mg/dL CBC 06/12/18 06/13/18 Range/Units 14:50 05:16 WBC 9.8 (3.8-10.6) k/uL RBC 4.00 L (4.30-5.90) m/uL Hgb 11.8 L (13.0-17.5) gm/dL Hct 37.2 L (39.0-53.0) % Plt Count 134 L 83 L (150-450) k/uL Comprehensive Metabolic Panel 06/12/18 Range/Units 14:50 Sodium 138 (137-145) mmol/L Potassium 4.2 (3.5-5.1) mmol/L Chloride 104 (98-107) mmol/L Carbon Dioxide 22 (22-30) mmol/L BUN 25 H (9-20) mg/dL Creatinine 1.06 (0.66-1.25) mg/dL Glucose 167 H (74-99) mg/dL Calcium 9.6 (8.4-10.2) mg/dL AST 178 H (17-59) U/L ALT 171 H (21-72) U/L Alkaline Phosphatase 288 H (38-126) U/L Total Protein 6.5 (6.3-8.2) g/dL Albumin 3.6 (3.5-5.0) g/dL Current Medications Generic Name Dose Route Start Last Admin Trade Name Freq PRN Reason Stop Dose Admin Aspirin 325 mg 06/13/18 09:00 06/13/18 12:33 Aspirin PO 325 mg DAILY VIDAL Administration Atorvastatin Calcium 80 mg 06/13/18 09:00 06/13/18 12:33 Lipitor PO 80 mg DAILY VIDAL Administration Lisinopril/HCTZ 1 each 06/13/18 17:00 Zestoretic 20-25 PO DAILY@1700 VIDAL Heparin Sodium (Porcine) 0 unit 06/12/18 17:19 Heparin IV Q6HR PRN Low PTT Protocol Hydromorphone HCl 0.5 mg 06/13/18 14:17 Dilaudid IVP Q6HR PRN MODERATE Pain Hydromorphone HCl 1 mg 06/13/18 14:21 Dilaudid IVP Q4HR PRN SEVERE Pain Ampicillin Sodium/Sulbactam 100 mls @ 200 mls/hr 06/13/18 00:00 06/13/18 11: 21 Sodium 3 gm/ Sodium Chloride IVPB 200 mls/hr Q6HR VIDAL Administration Heparin Sodium/Sodium Chloride 250 mls @ 9.52 mls/hr 06/12/18 17:30 06/12/18 19:20 25,000 unit/ Sodium Chloride IV 12 units/kg/hr .Q24H VIDAL 9.52 mls/hr Administration Protocol 12 UNITS/KG/HR Sodium Chloride 1,000 mls @ 100 mls/hr 06/12/18 17:30 06/13/18 03:22 Saline 0.9% IV 100 mls/hr .Q10H VIDAL Administration Melatonin 6 mg 06/12/18 22:30 Melatonin PO HS PRN Insomnia Multivitamins 1 each 06/14/18 12:00 Theragran PO DAILY@1200 VIDAL Nitroglycerin 0.4 mg 06/12/18 17:19 06/13/18 14:12 Nitrostat SUBLINGUAL 0.4 mg Q5M PRN Administration Chest Pain Pantoprazole Sodium 40 mg 06/13/18 14:15 Protonix IVP DAILY VIDAL Intake and Output 06/12/18 06/13/18 06/13/18 22:59 06:59 14:59 Intake Total 1999 900 Balance 1999 900 Intake: Amount of Fluid Infused ( 2000 ml) Intake, IV Titration 900 Amount Ampicillin-Sulbactam 3 gm 100 In Sodium Chloride 0.9% 100 ml @ 200 mls/hr IVPB Q6HR VIDAL Rx#:[id number] Sodium Chloride 0.9% 1, 800 000 ml @ 100 mls/hr IV . Q10H VIDAL Rx#:[id number] Other: Voiding Method Toilet Toilet Toilet # Voids 1 2 Weight 83.4 kg 84 kg 06/13/18 05:16 06/12/18 14:50 Assessment and Plan Assessment: Assessment #1 ongoing chest discomfort #2 mildly abnormal cardiac enzymes #3 abnormal d-dimer #4 hypertension #5 dyslipidemia Plan #1 PE to be ruled out #2 if the PE ruled out, I would proceed with a coronary angiogram to rule out severe CAD #3 continue the current medical regimen which includes heparin IV, aspirin, and statin #4 start the patient on small dose of metoprolol #5 an echocardiogram was Doppler #6 follow up with the patient
[2018-06-13] MEDS ORDERED: HEPARIN SODIUM,PORCINE 30 ML 30 ML ONE (14:56)
[2018-06-13] MEDS ORDERED: fentaNYL (PF) 50 MCG/ML 2 ML AMP ONE (14:56)
[2018-06-13] MEDS ORDERED: LIDOCAINE 1% INJ 10MG/ML (20 ML MDV) ONE (14:56)
[2018-06-13] MEDS ORDERED: IV FLUID CONTINUATION 225 ML IV ONE (15:00)
[2018-06-13] MEDS ORDERED: IV FLUID CONTINUATION 350 ML IV ONE (15:00)
[2018-06-13] MEDS: MIDAZOLAM 2 MG/2 ML VIAL IVP ONE ×2 (15:22→15:49)
[2018-06-13] MEDS: fentaNYL (PF) 50 MCG/ML 2 ML AMP IVP ONE ×2 (15:22→15:30)
[2018-06-13] MEDS ORDERED: LIDOCAINE 1% INJ 10MG/ML (20 ML MDV) SQ ONE (15:23)
[2018-06-13] MEDS ORDERED: METOPROLOL TARTRATE 5 MG/5 ML VIAL IVP ONE ×2 (15:32→15:35)
[2018-06-13] MEDS: HYDROmorphone 2 MG/ML 1 ML SYRINGE IVP ONE ×2 (15:35→15:49)
[2018-06-13] MEDS ORDERED: BIVALIRUDIN BOLUS 250 MG/50 ML IV ONE (15:38)
[2018-06-13] MEDS ORDERED: FUROSEMIDE 10 MG/ML 4 ML VIAL ONE (15:38)
[2018-06-13] MEDS ORDERED: BIVALIRUDIN 250 MG in SODIUM CHLORIDE 0.9% 50 ML IV ONE (15:39)
[2018-06-13] MEDS ORDERED: ADENOSINE 90 MG in SODIUM CHLORIDE 0.9% 60 ML IVP ONE (15:47)
[2018-06-13] MEDS ORDERED: RX INFO: IV CONTRAST WAS GIVEN 1 EACH MISC MISCELLANE PRN (15:55)
[2018-06-13] MEDS ORDERED: IOPAMIDOL-370 125ML BTL INJ ONE (15:56)
[2018-06-13] MEDS ORDERED: FUROSEMIDE 10 MG/ML 4 ML VIAL IVP ONE (15:56)
[2018-06-13] MEDS ORDERED: SODIUM CHLORIDE 0.9% 1,000 ML IV SCH (16:00)
--- NOTE | 2018-06-13 16:47 | HP ---
HISTORY AND PHYSICAL CHIEF COMPLAINTS: Lower chest and upper abdominal pain. HISTORY OF PRESENT ILLNESS: This 82-year-old gentleman with a past medical history of multiple medical problems including hypertension, hyperlipidemia, restless legs syndrome, history of colon cancer, surgery removing, is being followed by Dr. Valdovinos also getting chemo. The most recent evaluation showed no evidence of recurrence apparently. The patient is now coming into [facility] with complaints of severe chest pain which is felt in the lower part of the chest and upper part of the abdomen. Pain was moderate in intensity. Patient had elevated D-dimer and thoracic aorta CT was also done. The pain was as if somebody sitting heavy on the chest without radiation without any palpation, associated sweating or shortness of breath. The evaluation at the time of admission included thoracic aorta CT showed calcified plaques, stable appearance of pancreas. The gallbladder ultrasound showed right inferior pole renal cyst. Surgical evaluation in progress. Cardiology also following the patient closely. MRCP done last year showed findings suspicious of lesion in the ampulla Vater, mild was suspected. There is no history of fever, rigors. No headache, loss of consciousness or seizures. PAST MEDICAL HISTORY: History of colon cancer, hypertension, hyperlipidemia, restless leg syndrome, history of back surgery, history of DJD. MEDICATIONS: Prior to admission include home medications are: 1. Omeprazole 20 mg p.o. daily. 2. Multivitamins 1 p.o. daily. 3. Cranberry 200 mg daily. 4. Lisinopril hydrochlorothiazide/Zestoretic 20/12.5 p.o. daily. 5. Lipitor 10 mg daily. 6. Ecotrin 81 mg p.o. ALLERGIES: None. FAMILY HISTORY: No history of heart disease and strokes in family. SOCIAL HISTORY: Previous history of smoking. No current smoking or alcohol intake. REVIEW OF SYSTEMS: ENT: No diminished hearing or vision. CARDIOVASCULAR: No angina. RESPIRATORY: As mentioned earlier. GI: As mentioned earlier. : No dysuria. NERVOUS SYSTEM: No numbness or weakness. ALLERGY/IMMUNOLOGY: No asthma or hay fever. MUSCULOSKELETAL: As mentioned earlier. HEMATOLOGY/ONCOLOGY: No history of anemia. ENDOCRINE: No history of diabetes or hypothyroid. CONSTITUTIONAL: As mentioned earlier. DERMATOLOGY: Negative. RHEUMATOLOGY: Negative. PSYCHIATRY: As mentioned earlier. PHYSICAL EXAMINATION: Alert, oriented x3. Pulse 94, blood pressure 112/64, respiration 16, temperature 98.4, pulse ox 98% on room air. HEENT: Conjunctivae normal. Oral mucosa moist. Neck is no jugular venous distention. No carotid bruit. No lymph node enlargement. CARDIOVASCULAR: S1, S2. RESPIRATORY: Breath sounds diminished in the bases. No rhonchi, no crackles. ABDOMEN: Soft. Mild diffuse discomfort in the epigastrium. No mass palpable. No guarding. No ascites. Bowel sounds present. LEGS: No edema. No swelling. NERVOUS SYSTEM: Higher functions as mentioned earlier. Moves all 4 limbs. No focal motor deficits. LYMPHATICS: No lymphadenopathy in the neck, axillae, groin. SKIN: No ulcer, rash or bleeding. LABS: At this time shows WBC 9.8, hemoglobin 11.8, platelet count is 134. D-dimer is 0.91. Sodium 130, potassium 4.2, plasma lactic acid 2.6. Total bilirubin is 2, AST is 178, ALT is 171, alkaline phosphatase is 288. Troponin 0.041. The thoracic aorta noted. The EKG showed tachycardia reported as tachycardia with possible first-degree AV block. ASSESSMENT: 1. Chest pain, abdominal pain, rule out acute non ST elevation myocardial infarction. 2. Troponin 0.048. 3. Tachycardia with first-degree AV block in the EKG, possibly. 4. Rule out choledocholithiasis. 5. Suspicious lesion in the ampulla Vater in the previous MRCP. 6. Elevated plasma lactic acid. 7. Increased AST and ALT with total bilirubin. 8. Anemia. 9. Thrombocytopenia. 10.Hypertension. 11.Hyperlipidemia. 13.History of colon cancer with chemo. 14.History of back surgery and degenerative joint disease. 15.Remote history of nicotine dependence. RECOMMENDATIONS AND DISCUSSION: This 82-year-old gentleman who presented with multiple complex medical issues, we will monitor the patient closely. Continue the current management and symptomatic treatment. Will obtain cardiology consultation. Surgery has seen the patient and recommended gastroenterology evaluation. In view of the previous MRCP findings and direct visualization of the lesion may be important at this stage. However, we will continue to monitor. Gastroenterology has been consulted. Repeat labs will be ordered. Overall prognosis guarded because of multiple complex medical issues. Further recommendations to follow. Copy of dictation forwarded to Dr. Valdovinos who is the primary physician. MMODL / IJN: [id number] / [id number]
[2018-06-13] MEDS ORDERED: IBUPROFEN 200 MG TAB PO PRN (16:48)
[2018-06-13] MEDS: LISINOPRIL-HCTZ 20-25 MG 1 EACH TAB PO SCH (17:13)
[2018-06-13 17:21] LABS: Appearance,Urine Clear (Clear); Bilirubin,Urine Negative (Negative); Blood,Urine Negative (Negative); Color,Urine Yellow; Glucose,Urine (UA) Negative (Negative); Ketones,Urine Negative (Negative); Leukocyte Esterase,Urine Negative (Negative); Nitrite,Urine Negative (Negative); PH, Urine 5.5 (5.0-8.0); Protein,Urine Negative (Negative); Specific Gravity,Urine 1.015 (1.001-1.035)
[2018-06-13] MEDS: PANTOPRAZOLE 40 MG/10 ML VIAL IVP SCH (18:21)
[2018-06-13] MEDS: PIPERACILLIN-TAZOBACTAM 3.375 GM in SODIUM CHLORIDE 0.9% 100 ML IVPB SCH (19:21)
[2018-06-13] MEDS: METOPROLOL TARTRATE 12.5 MG TAB PO SCH (19:42)
[2018-06-13] MEDS: MELATONIN 3 MG TABLET PO PRN (21:13)
--- NOTE | 2018-06-13 21:19 | CC ---
CARDIAC CATHETERIZATION REPORT DATE OF SERVICE: June 13, 2018 PERFORMING PHYSICIAN: Robert Mai MD, aquarist. PROCEDURE PERFORMED: 1. Selective right and left coronary angiogram. 2. Left heart catheterization. 3. Fractional flow reserve FFR of the right coronary artery. INDICATION: This is a pleasant 82-year-old gentleman who is in excellent physical shape, who presented to the hospital with chest discomfort and ruled in for acute non ST elevation myocardial infarction. Heart catheterization was advised because the patient continues to have chest discomfort. APPROACH: Right common femoral artery. COMPLICATION: None. LEVEL OF SEDATION: Moderate, sedation length of 30 minutes. PROCEDURE DESCRIPTION: After obtaining an informed consent, the patient was brought to the production laborer. The right common femoral artery was cannulated using micropuncture technique and a micropuncture wire passed easily. Then I placed a 6-Marshallese sheath in the right common femoral artery. After that I did selective right and left coronary angiogram. JR4 and JL4 catheter. Left heart catheterization was performed using 6-Marshallese pigtail catheter. The procedure was completed. After that I did FFR of the right coronary artery. Please see separate paragraph for that. SELECTIVE CORONARY ANGIOGRAM: 1. The right coronary artery is a large caliber vessel and it is a dominant vessel. The proximal RCA appeared to have mild disease only. The mid RCA has mild disease only. The RCA distally has moderate to severe lesion in the range of 60%. I did FFR across it and that came into be at 0.90. 2. The left main is angiographically normal. It bifurcates into the circumflex and left anterior descending artery. 3. The circumflex is a large caliber vessel. It is a nondominant vessel. The left circumflex has mild disease only. 4. The LAD: The proximal LAD appeared to be have mild disease only. It gives rise into a large diagonal branch which appeared to be normal. The mid LAD has intermediate lesion in the range of 50% only. This is distal to the bifurcation of second diagonal branch which appeared to be angiographically normal. It distally appeared to be normal. 5. HEMODYNAMICS: The left ventricular end-diastolic pressure was 20 mmHg and no gradient was identified across the aortic valve. FFR OF THE RCA: After zeroing the Doppler wire and equalizing between the Doppler wire and the guiding catheter with the FFR, adenosine infusion and the FFR came in to be at 0.90. At that time, the procedure was completed without any complication. CONCLUSION: 1. Acute non ST elevation myocardial infarction. 2. 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 The FFR was performed and came into nonischemic at 0.90. 3. Mild disease involving the left coronary system. POSTPROCEDURE MANAGEMENT: 1. Maximize medical treatment. 2. High-intensity statin. 3. Dual anti-platelet therapy. 4. Risk factors modifications. 5. Follow up with the patient. BETTY / ANTONIETTAN: [id number] /
--- NOTE | 2018-06-13 21:43 | LTR ---
June 07, [address] Valdovinos: Mr. Juno Walker presented to [facility] with chest discomfort and ruled in for acute non ST elevation myocardial infarction. He underwent a heart catheterization and that revealed intermediate disease involving the right coronary artery. Maximized medical treatment only was advised. I want to thank you for allowing us to participate in his care and please do not hesitate to call if you have any question or concern. MMODL / IJN: [id number] /
[2018-06-14] MEDS: PIPERACILLIN-TAZOBACTAM 3.375 GM in SODIUM CHLORIDE 0.9% 100 ML IVPB SCH ×5 (00:26→23:11)
[2018-06-14 06:40] LABS: Basophils % (A) 0 %; Eosinophils # (A) 0.1 k/uL (0-0.7); Eosinophils % (A) 1 %; HCT 30.4 % (39.0-53.0); Lymphocytes # (A) 0.3 k/uL (1.0-4.8); Lymphocytes % (A) 5 %; MCHC 32.4 g/dL (31.0-37.0); MCV 92.7 fL (80.0-100.0); Monocytes # (A) 0.3 k/uL (0-1.0); Monocytes % (A) 6 %; Neutrophils # (A) 4.5 k/uL (1.3-7.7); Neutrophils % (A) 85 %; Platelet Count 61 k/uL (150-450); RBC 3.28 m/uL (4.30-5.90); RDW 14.1 % (11.5-15.5); WBC 5.2 k/uL (3.8-10.6)
[2018-06-14 06:43] LABS: HGB 9.8 gm/dL (13.0-17.5)
[2018-06-14 06:51] LABS: Albumin 2.5 g/dL (3.5-5.0); Calcium 8.2 mg/dL (8.4-10.2); Potassium 4.2 mmol/L (3.5-5.1); Total Bilirubin 3.6 mg/dL (0.2-1.3); Total Protein 5.1 g/dL (6.3-8.2)
[2018-06-14] MEDS ORDERED: PANTOPRAZOLE 40 MG TABLET PO SCH (07:30)
[2018-06-14] MEDS: ASPIRIN 325 MG TAB PO SCH (08:38)
[2018-06-14] MEDS: METOPROLOL TARTRATE 12.5 MG TAB PO SCH (08:39)
[2018-06-14] MEDS: PANTOPRAZOLE 40 MG/10 ML VIAL IVP SCH (08:39)
[2018-06-14] MEDS: MULTIVITAMINS, THERA 1 EACH TAB PO SCH (08:39)
[2018-06-14] MEDS: ATORVASTATIN 80 MG TAB PO SCH (08:39)
--- NOTE | 2018-06-14 10:30 | ECHOF ---
Referral Reason:nstemi MEASUREMENTS -------- HEIGHT: 157.5 cm WEIGHT: 84.4 kg BP: 94/53 RVIDd: 3.6 cm (< 3.3) IVSd: 1.2 cm (0.6 - 1.1) LVIDd: 4.0 cm (3.9 - 5.3) LVPWd: 1.1 cm (0.6 - 1.1) IVSs: 1.3 cm LVIDs: 2.9 cm LVPWs: 1.2 cm LA Diam: 4.1 cm (2.7 - 3.8) LAESV Index (A-L): 30.15 ml/m Ao Diam: 3.9 cm (2.0 - 3.7) AV Cusp: 1.5 cm (1.5 - 2.6) LA Diam: 4.2 cm (2.7 - 3.8) MV EXCURSION: 20.694 mm (> 18.000) MV EF SLOPE: 91 mm/s (70 - 150) EPSS: 1.2 cm MV E Vj: 1.03 m/s MV DecT: 146 ms MV A Vj: 1.06 m/s MV E/A Ratio: 0.96 RAP: 5.00 mmHg RVSP: 20.40 mmHg FINDINGS -------- Sinus rhythm. This was a technically adequate study. The left ventricular size is normal. There is mild concentric left ventricular hypertrophy. Overa ll left ventricular systolic function is normal with, an EF between 55 - 60 %. The right ventricle is normal in size. The left atrium is mildly dilated. LA is midly dilated 29-33ml/m2. The right atrial size is normal. There is mild aortic valve sclerosis. There is no evidence of aortic regurgitation. Mild mitral annular calcification present. Mild mitral regurgitation is present. Mild tricuspid regurgitation present. There is no evidence of pulmonary hypertension. The right v entricular systolic pressure, as measured by Doppler, is 20.40mmHg. There is no pulmonic regurgitation present. The aortic root size is normal. There is no pericardial effusion. CONCLUSIONS -------- 1. The left ventricular size is normal. 2. There is mild concentric left ventricular hypertrophy. 3. Overall left ventricular systolic function is normal with, an EF between 55 - 60 %. 4. The right ventricle is normal in size. 5. The left atrium is mildly dilated. 6. LA is midly dilated 29-33ml/m2. 7. The right atrial size is normal. 8. There is mild aortic valve sclerosis. 9. Mild mitral annular calcification present. 10. Mild mitral regurgitation is present. 11. Mild tricuspid regurgitation present. 12. There is no evidence of pulmonary hypertension. 13. The right ventricular systolic pressure, as measured by Doppler, is 20.40mmHg. 14. There is no pulmonic regurgitation present. 15. The aortic root size is normal. 16. There is no pericardial effusion. RECREATIONAL SPORTS DIRECTOR: Roxi Alvarenga RDCS
--- NOTE | 2018-06-14 11:25 | P.PN ---
Subjective Progress Note Date: 06/14/18 patient is doing well today. No complaints pain is resolved. No nausea vomiting Objective - Vital Signs Vital signs: Vital Signs Temp 98.5 F 06/14/18 08:00 Pulse 72 06/14/18 11:11 Resp 16 06/14/18 11:11 BP 101/56 06/14/18 11:11 Pulse Ox 92 L 06/14/18 11:11 Intake & Output 06/13/18 06/14/18 06/14/18 18:59 06:59 18:59 Intake Total 396.0 240 Output Total 100 Balance 396.0 -100 240 Weight 84.4 kg Intake: IV 396.0 Oral 240 Output: Urine 100 Other: Voiding Method Toilet Toilet # Voids 1 1 2 - Constitutional General appearance: Present: cooperative - Respiratory Details: nonlabored - Cardiovascular Rhythm: regular - Gastrointestinal Gastrointestinal Comment(s): soft nontender nondistended - Psychiatric Psychiatric: Present: A&O x's 3 - Labs CBC & Chem 7: 06/14/18 05:45 06/14/18 05:45 Labs: Abnormal Lab Results - Last 24 Hours (Table) 06/13/18 06/14/18 06/14/18 Range/Units 14:37 05:45 05:45 RBC 3.28 L (4.30-5.90) m/uL Hgb 9.8 L D (13.0-17.5) gm/dL Hct 30.4 L (39.0-53.0) % Plt Count 61 L (150-450) k/uL Lymphocytes # 0.3 L (1.0-4.8) k/uL Sodium 136 L (137-145) mmol/L Chloride 110 H (98-107) mmol/L Carbon Dioxide 20 L (22-30) mmol/L BUN 33 H (9-20) mg/dL Creatinine 1.33 H (0.66-1.25) mg/dL Glucose 73 L (74-99) mg/dL Calcium 8.2 L (8.4-10.2) mg/dL Total Bilirubin 3.6 H (0.2-1.3) mg/dL AST 90 H (17-59) U/L ALT 143 H (21-72) U/L Alkaline Phosphatase 156 H (38-126) U/L Troponin I 0.041 H* (0.000-0.034) ng/mL Total Protein 5.1 L (6.3-8.2) g/dL Albumin 2.5 L (3.5-5.0) g/dL Assessment and Plan Assessment: Acute chest pain Elevated LFTs and bilirubin Plan: patient did have increase in his bilirubin. He is asymptomatic at this time. There is no plans for acute surgical intervention the patient should follow-up with GI regarding LFTs and bilirubin.
[2018-06-14 12:34] LABS: Hepatitis A Antibody IgM Non-Reactive (Non-Reactive); Hepatitis B Core IgM Non-Reactive (Non-Reactive)
--- NOTE | 2018-06-14 12:36 | P.PN ---
Subjective Progress Note Date: 06/14/18 This is a pleasant 82-year-old gentleman with past medical history significant for hypertension, hyperlipidemia, who presented to the emergency room with symptoms of chest discomfort. His initial EKG showed sinus rhythm with first-degree AV block and sinus tachycardia. No specific ST T-wave changes were noted. Patient did have slight abnormality noted in his troponins , for this reason he was advised to undergo cardiac catheterization. Cardiac catheterization was performed yesterday by Dr. 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 Maximum medical therapy advised. Patient was seen and examined this morning, he feels well, denies any chest pain or difficulty in breathing. Patient did have a temperature of 101.6 last evening. Patient also states that a couple of weeks ago before coming to the hospital he had a fever at home of 103.5. Patient is noted to have abnormal liver enzymes for which GI has been consulted to see him. White blood cell count is normal, hemoglobin 9.8, platelet count 61. Sodium 136, potassium 4.2, BUN 33, creatinine 1.3, total bilirubin 3.6, AST 98, ALT 143, alk phos 156. Albumin 2.5. Influenza A and B screen were negative. Objective - Vital Signs Vital signs: Vital Signs Temp 98.5 F 06/14/18 08:00 Pulse 72 06/14/18 11:29 Resp 16 06/14/18 11:11 BP 101/56 06/14/18 11:11 Pulse Ox 92 L 06/14/18 11:11 Intake & Output 06/13/18 06/14/18 06/14/18 18:59 06:59 18:59 Intake Total 396.0 240 Output Total 100 Balance 396.0 -100 240 Weight 84.4 kg Intake: IV 396.0 Oral 240 Output: Urine 100 Other: Voiding Method Toilet Toilet # Voids 1 1 2 - Exam PHYSICAL EXAMINATION: GENERAL: 82-year-old gentleman in no acute distress at the time of my examination HEENT: Head is atraumatic, normocephalic. Pupils equal, round. Sclera anicteric. Conjunctiva are clear. Mucous membranes of the mouth are moist. Neck is supple. There is no elevated jugular venous pressure. No carotid bruit is heard. HEART EXAMINATION: Heart S1, S2 normal. No murmur or gallop heard. CHEST EXAMINATION: Lungs are clear to auscultation and precussion. No chest wall tenderness is noted on palpation or with deep breathing. ABDOMEN: Soft, nontender. Bowel sounds are heard. No organomegaly noted. EXTREMITIES: 2+ peripheral pulses with no evidence of peripheral edema and no calf tenderness noted. Right groin soft, no evidence of any hematoma. NEUROLOGIC patient is awake, alert and oriented 3 . . - Labs CBC & Chem 7: 06/14/18 05:45 06/14/18 05:45 Labs: Abnormal Lab Results - Last 24 Hours (Table) 06/13/18 06/14/18 06/14/18 Range/Units 14:37 05:45 05:45 RBC 3.28 L (4.30-5.90) m/uL Hgb 9.8 L D (13.0-17.5) gm/dL Hct 30.4 L (39.0-53.0) % Plt Count 61 L (150-450) k/uL Lymphocytes # 0.3 L (1.0-4.8) k/uL Sodium 136 L (137-145) mmol/L Chloride 110 H (98-107) mmol/L Carbon Dioxide 20 L (22-30) mmol/L BUN 33 H (9-20) mg/dL Creatinine 1.33 H (0.66-1.25) mg/dL Glucose 73 L (74-99) mg/dL Calcium 8.2 L (8.4-10.2) mg/dL Total Bilirubin 3.6 H (0.2-1.3) mg/dL AST 90 H (17-59) U/L ALT 143 H (21-72) U/L Alkaline Phosphatase 156 H (38-126) U/L Troponin I 0.041 H* (0.000-0.034) ng/mL Total Protein 5.1 L (6.3-8.2) g/dL Albumin 2.5 L (3.5-5.0) g/dL Assessment and Plan Plan: Assessment and plan #1 acute coronary syndrome, status post cardiac catheterization which revealed intermediate to severe disease involving the distal RCA, and FFR was performed which came in to be nonischemic at 0.9, maximum medical therapy advised. #2 fever, 101.2 last evening, influenza A and B were negative, abnormal liver enzymes for which GI has been consulted. #3 hypertension #4 hyperlipidemia Plan EchoCardiogram with Doppler study revealed a normal left ventricular systolic function. Cardiology's perspective, we'll recommend to continue the patient on an aspirin which we will decrease to 81 mg daily, Lipitor 80 mg daily, we will discontinue the ibuprofen, continue lisinopril hydrochlorothiazide, metoprolol and Plavix 75 mg daily. From our perspective, patient may be able to be discharged once cleared by primary. We'll make him a follow-up appointment in the office post discharge. DNP note has been reviewed, I agree with a documented findings and plan of care. Patient was seen and examined.
[2018-06-14] MEDS ORDERED: HYDROmorphone 1 MG/ML 1 ML SYRINGE IVP PRN (15:28)
[2018-06-14] MEDS: LISINOPRIL-HCTZ 20-25 MG 1 EACH TAB PO SCH (17:14)
[2018-06-14] MEDS: CLOPIDOGREL 75 MG TAB PO SCH (17:16)
[2018-06-14] MEDS ORDERED: IBUPROFEN 400 MG TAB PO PRN (20:37)
[2018-06-14] MEDS: METOPROLOL TARTRATE 25 MG TAB PO SCH (20:46)
[2018-06-14] MEDS: DOCUSATE 100 MG CAP PO PRN (21:24)
[2018-06-14] MEDS: MELATONIN 3 MG TABLET PO PRN (21:24)
--- NOTE | 2018-06-14 23:49 | P.PN ---
Subjective Progress Note Date: 06/14/18 Principal diagnosis: Abdominal pain Rule out choledocholithiasis Patient is a 82-year-old male with a known history of hypertension, hyperlipidemia came to ER with complaints of chest discomfort and abdominal pain mainly across the lower anterior chest. Initial EKG showed sinus rhythm with first-degree AV block and sinus tachycardia. Patient was found have slightly elevated troponin level. Patient underwent cardiac catheterization by Dr. 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 Medical therapy was advised. Patient was found to have slightly elevated bilirubin level II.0 on admission. Currently increased to 3.6 along with AST 98 and ALT 143 and alk phos 156. Currently patient denied any complaints of chest pain or shortness of breath. Influenza A and B-. Ultrasound of the abdominal showed no concerning sonographic findings of right upper quadrant. No sonographic evidence of cholecystitis. Right inferior pole renal cyst. 2-D echocardiogram showed normal ejection fraction and no significant valvular abnormalities. No fever no chills. Lactic acidosis level improved. Patient is being continued on antibiotics in the form of Zosyn. GI was consulted.. Current medications reviewed. Active Medications Aspirin (Aspirin) 81 mg PO DAILY [facility] Clopidogrel Bisulfate (Plavix) 75 mg PO DAILY [facility] Last Admin: 06/14/18 17:16 Dose: 75 mg Docusate Sodium (Colace) 100 mg PO BID PRN PRN Reason: Constipation Last Admin: 06/14/18 21:24 Dose: 100 mg Lisinopril/HCTZ (Zestoretic 20-25) 1 each PO DAILY@1700 [facility] Last Admin: 06/14/18 17:14 Dose: 1 each Hydromorphone HCl (Dilaudid) 0.5 mg IVP Q6HR PRN PRN Reason: MODERATE Pain Last Admin: 06/13/18 14:33 Dose: 0.5 mg Hydromorphone HCl (Dilaudid) 1 mg IVP Q4HR PRN PRN Reason: SEVERE Pain Piperacillin Sod/Tazobactam (Sod 3.375 gm/ Sodium Chloride) 100 mls @ 25 mls/ hr IVPB Q8HR [facility] Last Admin: 06/14/18 23:11 Dose: 25 mls/hr Ibuprofen (Motrin) 400 mg PO Q4HR PRN PRN Reason: Fever and/or Mild Pain Last Admin: 06/14/18 20:46 Dose: 400 mg Melatonin (Melatonin) 6 mg PO HS PRN PRN Reason: Insomnia Last Admin: 06/14/18 21:24 Dose: 6 mg Metoprolol Tartrate (Lopressor) 25 mg PO BID [facility] Last Admin: 06/14/18 20:46 Dose: 25 mg Miscellaneous Information (Rx Info: Iv Contrast Was Given) 1 each MISCELLANE DAILY PRN PRN Reason: Per Protocol Stop: 06/15/18 15:55 Multivitamins (Theragran) 1 each PO DAILY@1200 [facility] Last Admin: 06/14/18 08:39 Dose: 1 each Nitroglycerin (Nitrostat) 0.4 mg SUBLINGUAL Q5M PRN PRN Reason: Chest Pain Last Admin: 06/13/18 14:12 Dose: 0.4 mg Pantoprazole Sodium (Protonix) 40 mg IVP DAILY [facility] Last Admin: 06/14/18 08:39 Dose: 40 mg Objective - Vital Signs Vital signs: Vital Signs Temp 100.1 F H 06/14/18 20:10 Pulse 88 06/14/18 20:10 Resp 17 06/14/18 20:10 BP 111/59 06/14/18 20:10 Pulse Ox 96 06/14/18 20:10 Intake & Output 06/14/18 06/14/18 06/15/18 06:59 18:59 06:59 Intake Total 480 Output Total 100 Balance -100 480 Weight 84.4 kg Intake: Oral 480 Output: Urine 100 Other: Voiding Method Toilet Toilet # Voids 1 3 1 - Exam PHYSICAL EXAMINATION: Patient is lying in the bed comfortably, no acute distress, awake alert and oriented.. HEENT: Normocephalic. Neck is supple. Pupils reactive. Mild icterus. Nostrils clear. Oral cavity is moist. Ears reveal no drainage. Neck reveals no JVD, carotid bruits, or thyromegaly. CHEST EXAMINATION: Trachea is central. Symmetrical expansion. Lung brennan clear to auscultation and percussion. CARDIAC: Normal S1, S2 with no gallops. No murmurs ABDOMEN: Soft. Bowel sounds normal. No organomegaly. No abdominal bruits. Extremities: reveal no edema. No clubbing or cyanosis Neurologically awake, alert, oriented x3 with well-coordinated movements. No focal deficits noted Skin: No rash or skin lesions. Psychiatric: Coperative. Nonsuicidal Musculoskeletal: No joint swelling or deformity. Normal range of motion. - Labs CBC & Chem 7: 06/14/18 05:45 06/14/18 05:45 Labs: Abnormal Lab Results - Last 24 Hours (Table) 06/14/18 06/14/18 Range/Units 05:45 05:45 RBC 3.28 L (4.30-5.90) m/uL Hgb 9.8 L D (13.0-17.5) gm/dL Hct 30.4 L (39.0-53.0) % Plt Count 61 L (150-450) k/uL Lymphocytes # 0.3 L (1.0-4.8) k/uL Sodium 136 L (137-145) mmol/L Chloride 110 H (98-107) mmol/L Carbon Dioxide 20 L (22-30) mmol/L BUN 33 H (9-20) mg/dL Creatinine 1.33 H (0.66-1.25) mg/dL Glucose 73 L (74-99) mg/dL Calcium 8.2 L (8.4-10.2) mg/dL Total Bilirubin 3.6 H (0.2-1.3) mg/dL AST 90 H (17-59) U/L ALT 143 H (21-72) U/L Alkaline Phosphatase 156 H (38-126) U/L Total Protein 5.1 L (6.3-8.2) g/dL Albumin 2.5 L (3.5-5.0) g/dL Microbiology - Last 24 Hours (Table) 06/13/18 17:38 Blood Culture - Preliminary Blood No Growth after 24 hours Assessment and Plan Assessment: Upper abdominal pain with hyperbilirubinemia. Suspected choledochal stone versus stricture Acute non-ST elevated PR with Elevated troponin level status post cath. Medical therapy advised. Suspicious lesion in the ampulla as per previous MRCP Elevated AST and ALT Lactic acidosis resolved. Hypertension Hyperlipidemia History of colon cancer status post chemotherapy History of back surgery and degenerative joint disease History of nicotine dependence DVT prophylaxis Plan: Patient will be continued on maximal medical therapy with aspirin, atorvastatin , lisinopril metoprolol and Plavix. GI was consulted for hyperbilirubinemia and also fever on admission. Continue with antibiotics in the form of Zosyn. Cardiology is on board. Further recommendations based on the clinical course. Prognosis is guarded with multiple medical problems and comorbid conditions. Time with Patient: Greater than 30
--- NOTE | 2018-06-15 07:04 | P.CONS ---
History of Present Illness - Reason for Consult Consult date: 06/14/18 Elevated liver enzymes Requesting physician: Anish Coughlin - Chief Complaint Chest discomfort - History of Present Illness The patient is a pleasant 82-year-old male with a medical history significant for hypertension, dyslipidemia, colonic adenocarcinoma status post right hemicolectomy presented to the hospital with complaints of chest discomfort. The patient presented with complaints of chest pain described as a diffuse discomfort across his chest pressure-like in sensation with associated shortness of breath. He subsequently underwent cardiac evaluation including a catheterization which was essentially negative. On his admission the patient was also found to have elevation in his liver enzymes with a total bilirubin 3.6 , alkaline phosphatase 156, AST 90 and ALT 143. The patient had previously had an MRCP approximately 1 year ago which was suspicious for an ampullary mass and subsequently underwent an EGD on 06/2017 which was significant for esophagitis and a prominent ampulla which was biopsied is significant for a tubular adenoma. On this admission the patient had a viral hepatitis panel which was negative and an ultrasound of the abdomen which showed a 0.9 cm common bile duct with a gallbladder within normal limits. He denies any complaints of abdominal pain, change in his bowel habits, hematochezia, or melena. He reports that the pain is currently resolved. Review of Systems REVIEW OF SYSTEMS: CONSTITUTIONAL: Denies any fevers, chills, weight change or fatigue. CARDIOVASCULAR: Patient with pressure-like sensation on presentation and low brought pressure which has improved RESPIRATORY: Denies any shortness of breath, hemoptysis or cough. GENITOURINARY: No dysuria or hematuria. MUSCULOSKELETAL: No weakness reported. SKIN: Denies any new rashes or lesions, jaundice or pallor. PSYCHIATRIC: Denies any depression or anxiety. NEUROLOGY: Denies headache, denies any new focal deficits. EARS/NOSE/THROAT: No recent hearing change, congestion, nasal discharge or sore throat. EYES: No pain in eyes, discharge or change in vision. GASTROINTESTINAL: As per HPI. Past Medical History Past Medical History: Hyperlipidemia, Hypertension Additional Past Medical History / Comment(s): restless leg before chemo, havent had in weeks. History of Any Multi-Drug Resistant Organisms: None Reported Past Surgical History: Back Surgery, Joint Replacement, Orthopedic Surgery Additional Past Surgical History / Comment(s): BILATERAL KNEE REPLACEMENTS, 2 FATTY TUMORS REMOVED FROM STOMACH, had colon cancer with surgical removal and chemo. last chemo was 4 weeks ago. Past Anesthesia/Blood Transfusion Reactions: No Reported Reaction Past Psychological History: No Psychological Hx Reported Smoking Status: Former smoker Past Alcohol Use History: None Reported Additional Past Alcohol Use History / Comment(s): quit smoking 40 yrs. ago, < ppd 10 yrs. on & off Past Drug Use History: None Reported Additional History: Family history: Denies a family history which is pertinent to current medical presentation. - Past Family History Mother Family Medical History: No Reported History Medications and Allergies Home Medications Medication Instructions Recorded Confirmed Type Atorvastatin [Lipitor] 20 mg PO DAILY@0 03/29/15 06/12/18 History Lisinopril-Hctz 20-25 mg 1 each PO DAILY@169903/29/15 06/12/18 History [Zestoretic 20-25] Aspirin [Adult Low Dose Aspirin EC] 81 mg PO 07/09/17 History Cranberry Fruit Extract [Cranberry] 200 mg PO DAILY 06/12/18 06/12/18 History Multivitamins, Thera [Multivitamin 1 tab PO DAILY 06/12/18 06/12/18 History (formulary)] Omeprazole 20 mg PO DAILY 06/12/18 06/12/18 History Allergies Allergy/AdvReac Type Severity Reaction Status Date / Time No Known Allergies Allergy Verified 06/12/18 14:49 Physical Exam Vitals: Vital Signs Temp Pulse Resp BP Pulse Ox 06/14/18 20:10 100.1 F H 88 17 111/59 96 06/14/18 15:52 81 06/14/18 15:51 98.6 F 81 14 118/56 97 06/14/18 11:29 72 06/14/18 11:11 72 16 101/56 92 L 06/14/18 08:00 98.5 F 82 16 101/59 97 06/14/18 04:00 98.1 F 77 18 94/53 97 06/14/18 00:36 97 06/14/18 00:00 98.3 F 78 18 90/47 96 06/13/18 21:18 98.7 F Intake and Output 06/14/18 06/14/18 06/14/18 06:59 14:59 22:59 Intake Total 240 240 Output Total 100 Balance -100 240 240 Intake: Oral 240 240 Output: Urine 100 Other: Voiding Method Toilet Toilet # Voids 1 2 1 Weight 84.4 kg On physical examination, patient appears comfortable in no apparent distress. HEAD: Normocephalic, atraumatic. EYES: No scleral icterus. No conjunctival injection. MOUTH: No lesions, tongue midline. NECK: Trachea midline, no gross abnormalities. CHEST: Clear to auscultation with no wheezing or rhonchi appreciated. HEART: Regular rate and rhythm. ABDOMEN: Soft, obese. Bowel sounds are positive. No organomegaly. No guarding or rigidity. EXTREMITIES: No pedal edema. SKIN: No rashes, no jaundice. NEUROLOGIC: Alert and oriented x3. No focal deficits. Results CBC & Chem 7: 06/14/18 05:45 06/14/18 05:45 Labs: Abnormal Lab Results - Last 24 Hours (Table) 06/14/18 06/14/18 Range/Units 05:45 05:45 RBC 3.28 L (4.30-5.90) m/uL Hgb 9.8 L D (13.0-17.5) gm/dL Hct 30.4 L (39.0-53.0) % Plt Count 61 L (150-450) k/uL Lymphocytes # 0.3 L (1.0-4.8) k/uL Sodium 136 L (137-145) mmol/L Chloride 110 H (98-107) mmol/L Carbon Dioxide 20 L (22-30) mmol/L BUN 33 H (9-20) mg/dL Creatinine 1.33 H (0.66-1.25) mg/dL Glucose 73 L (74-99) mg/dL Calcium 8.2 L (8.4-10.2) mg/dL Total Bilirubin 3.6 H (0.2-1.3) mg/dL AST 90 H (17-59) U/L ALT 143 H (21-72) U/L Alkaline Phosphatase 156 H (38-126) U/L Total Protein 5.1 L (6.3-8.2) g/dL Albumin 2.5 L (3.5-5.0) g/dL Microbiology - Last 24 Hours (Table) 06/13/18 17:38 Blood Culture - Preliminary Blood No Growth after 24 hours US - abdomen: report reviewed (Ultrasound of the abdomen significant for a common bile duct which was 0.9 cm and a gallbladder which was within normal limits.) Assessment and Plan (1) Elevated liver enzymes Narrative/Plan: Patient presenting with elevation in liver enzymes and predominantly a cholestatic pattern with no gross abnormalities on ultrasound of the abdomen. Unknown etiology, this may be due to hypotension on presentation at her relative hypoperfusion of the liver, cardiac etiology or other source. Viral hepatitis panel was also negative. 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 Current Visit: Yes Status: Acute Code(s): D13.5 - BENIGN NEOPLASM OF EXTRAHEPATIC BILE DUCTS SNOMED Code(s): 376140999 Plan: Supportive care Okay for diet We'll fractionate liver enzymes tomorrow, continue to monitor Ultrasound and viral hepatitis panel reviewed No plans for endoscopic evaluation at this time, patient can follow up in the outpatient setting for consideration for possible endoscopic ultrasound of the tubular adenoma for evaluation of possible resection, however given age and comorbidities monitoring may be more appropriate Continue Protonix daily Patient is scheduled for outpatient colonoscopy after resection of colonic cancer and subsequent chemotherapy with the surgical service Thank you for allowing us to participate in the care of this patient we will continue to follow
[2018-06-15 07:32] LABS: Basophils % (A) 0 %; Eosinophils # (A) 0.1 k/uL (0-0.7); Eosinophils % (A) 1 %; HCT 28.8 % (39.0-53.0); HGB 9.6 gm/dL (13.0-17.5); Lymphocytes # (A) 0.1 k/uL (1.0-4.8); Lymphocytes % (A) 4 %; MCH 30.9 pg (25.0-35.0); MCHC 33.2 g/dL (31.0-37.0); MCV 93.1 fL (80.0-100.0); Mean Platelet Volume 7.3; Monocytes # (A) 0.2 k/uL (0-1.0); Monocytes % (A) 6 %; Neutrophils # (A) 3.6 k/uL (1.3-7.7); Neutrophils % (A) 87 %; RBC 3.09 m/uL (4.30-5.90); RDW 14.1 % (11.5-15.5); WBC 4.1 k/uL (3.8-10.6)
[2018-06-15 07:36] LABS: Platelet Count 57 k/uL (150-450)
[2018-06-15 07:46] LABS: Albumin 2.4 g/dL (3.5-5.0); Bilirubin, Conjugated 1.5 mg/dL (0.0-0.3); Bilirubin, Delta 1.5 mg/dL (0.0-0.2); Bilirubin,Unconjugated 0.7 mg/dL (0.0-1.1); Calcium 8.3 mg/dL (8.4-10.2); Potassium 3.4 mmol/L (3.5-5.1); Total Bilirubin 3.7 mg/dL (0.2-1.3)
[2018-06-15] MEDS ORDERED: Potassium Replacement Protocol 1 EACH MISC MISCELLANE PRN (09:00)
[2018-06-15] MEDS: PIPERACILLIN-TAZOBACTAM 3.375 GM in SODIUM CHLORIDE 0.9% 100 ML IVPB SCH ×3 (09:24→23:25)
[2018-06-15] MEDS: CLOPIDOGREL 75 MG TAB PO SCH (09:25)
[2018-06-15] MEDS: METOPROLOL TARTRATE 25 MG TAB PO SCH ×2 (09:25→20:31)
[2018-06-15] MEDS: ASPIRIN 81 MG PO SCH (09:25)
[2018-06-15] MEDS: PANTOPRAZOLE 40 MG/10 ML VIAL IVP SCH (09:26)
[2018-06-15] MEDS: POTASSIUM CHLORIDE ER 20 MEQ TAB.ER PO SCH ×2 (09:26→11:18)
[2018-06-15] MEDS: MULTIVITAMINS, THERA 1 EACH TAB PO SCH (11:18)
--- NOTE | 2018-06-15 11:23 | P.PN ---
Subjective Progress Note Date: 06/15/18 Principal diagnosis: Jaundice and elevated liver enzymes Presently denies abdominal pain. Afebrile. White count 4.1. Platelet 57,000. Total bilirubin 3.7. Conjugated 1.5. AST 76. ALT 112. AP 219. Objective - Vital Signs Vital signs: Vital Signs Temp 98.8 F 06/15/18 08:00 Pulse 62 06/15/18 08:46 Resp 14 06/15/18 08:46 BP 103/56 06/15/18 08:00 Pulse Ox 96 06/15/18 03:50 Intake & Output 06/14/18 06/15/18 06/15/18 18:59 06:59 18:59 Intake Total 480 540 360 Output Total 100 Balance 480 540 260 Weight 85 kg Intake: IV 200 0.9 200 Intake, IV Titration 100 Amount Piperacillin-Tazobactam 3 100 .375 gm In Sodium Chloride 0.9% 100 ml @ 25 mls/hr IVPB Q8HR [facility] Rx# :[id number] Oral 480 240 360 Output: Urine 100 Other: Voiding Method Toilet Toilet # Voids 3 3 1 - Exam General appearance: The patient is alert, oriented, in no acute distress. Jaundice. HET: Head is normocephalic and atraumatic. Pupils are equal and reactive. Sclerae icterus. Oropharynx is clear without lesions. Neck: Supple without lymphadenopathy. Trachea midline. Heart: S1 S2. Regular rate and rhythm. Lungs: No crackles or wheezes are heard. Abdomen: Soft, nontender, nondistended with bowel sounds. No peritoneal signs. No palpable organomegaly or masses. Extremities: Normal skin color and turgor. No cyanosis, rash, ulceration, clubbing, or edema. Radial and pedal pulses are 2/4 bilaterally. Neurological: No focal deficits. Strength and sensation are grossly intact. - Labs CBC & Chem 7: 06/16/18 05:57 06/16/18 05:57 Labs: Abnormal Lab Results - Last 24 Hours (Table) 06/15/18 06/15/18 Range/Units 07:12 07:12 RBC 3.09 L (4.30-5.90) m/uL Hgb 9.6 L (13.0-17.5) gm/dL Hct 28.8 L (39.0-53.0) % Plt Count 57 L (150-450) k/uL Lymphocytes # 0.1 L (1.0-4.8) k/uL Potassium 3.4 L (3.5-5.1) mmol/L Chloride 111 H (98-107) mmol/L Carbon Dioxide 19 L (22-30) mmol/L BUN 26 H (9-20) mg/dL Calcium 8.3 L (8.4-10.2) mg/dL Total Bilirubin 3.7 H (0.2-1.3) mg/dL Conjugated Bilirubin 1.5 H (0.0-0.3) mg/dL Delta Bilirubin 1.5 H (0.0-0.2) mg/dL AST 76 H (17-59) U/L ALT 112 H (21-72) U/L Alkaline Phosphatase 219 H (38-126) U/L Total Protein 5.0 L (6.3-8.2) g/dL Albumin 2.4 L (3.5-5.0) g/dL Microbiology - Last 24 Hours (Table) 06/13/18 17:38 Blood Culture - Preliminary Blood No Growth after 24 hours Assessment and Plan (1) Elevated liver enzymes Current Visit: Yes Status: Acute Code(s): R74.8 - ABNORMAL LEVELS OF OTHER SERUM ENZYMES SNOMED Code(s): 762873552 (2) Abdominal pain Current Visit: Yes Status: Acute Code(s): R10.9 - UNSPECIFIED ABDOMINAL PAIN SNOMED Code(s): 76138713 (3) Ampullary adenoma Current Visit: Yes Status: Acute Code(s): D13.5 - BENIGN NEOPLASM OF EXTRAHEPATIC BILE DUCTS SNOMED Code(s): 372991797 (4) Chest pain Current Visit: Yes Status: Acute Code(s): R07.9 - CHEST PAIN, UNSPECIFIED SNOMED Code(s): 34575107 (5) History of colon cancer Current Visit: Yes Status: Acute Code(s): Z85.038 - PERSONAL HISTORY OF MALIGNANT NEOPLASM OF LARGE INTESTINE SNOMED Code(s): 837309689 (6) Thrombocytopenia Current Visit: Yes Status: Acute Code(s): D69.6 - THROMBOCYTOPENIA, UNSPECIFIED SNOMED Code(s): 683839096 Plan: 1. MRCP/MR pancreas rule out intra-versus extrahepatic process. Rule out pancreatic process. ERCP not planned at this time but contingent MRCP findings. 2. CEA, CA-19-9. 3. Daily CMP PT/INR. Assessment and plan a care discussed with Dr. Leal.
--- NOTE | 2018-06-15 15:11 | P.PN ---
Subjective Progress Note Date: 06/15/18 This is a pleasant 82-year-old gentleman with past medical history significant for hypertension, hyperlipidemia, who presented to the emergency room with symptoms of chest discomfort. His initial EKG showed sinus rhythm with first-degree AV block and sinus tachycardia. No specific ST T-wave changes were noted. Patient did have slight abnormality noted in his troponins , for this reason he was advised to undergo cardiac catheterization. Cardiac catheterization was performed yesterday by Dr. 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 Maximum medical therapy advised. Patient was seen and examined this morning, he feels well, denies any chest pain or difficulty in breathing. Patient did have a temperature of 101.6 last evening. Patient also states that a couple of weeks ago before coming to the hospital he had a fever at home of 103.5. Patient is noted to have abnormal liver enzymes for which GI has been consulted to see him. White blood cell count is normal, hemoglobin 9.8, platelet count 61. Sodium 136, potassium 4.2, BUN 33, creatinine 1.3, total bilirubin 3.6, AST 98, ALT 143, alk phos 156. Albumin 2.5. Influenza A and B screen were negative. 06/15/2018 Patient was seen and examined this morning, has no specific complaints. Scheduled today to undergo an MRI of the pancreas. If this comes back positive for pancreatic mass, patient will then be transferred to another institution. From cardiology's perspective, the patient remained stable. Denies any chest discomfort in his breathing is stable. Let pressure 114/58 with a heart rate in the 60s to 70s, 96% on room air. Objective - Vital Signs Vital signs: Vital Signs Temp 98.6 F 06/15/18 11:42 Pulse 72 06/15/18 11:42 Resp 14 06/15/18 11:42 BP 114/58 06/15/18 11:42 Pulse Ox 96 06/15/18 11:42 Intake & Output 06/14/18 06/15/18 06/15/18 18:59 06:59 18:59 Intake Total 480 540 360 Output Total 100 Balance 480 540 260 Weight 85 kg Intake: IV 200 0.9 200 Intake, IV Titration 100 Amount Piperacillin-Tazobactam 3 100 .375 gm In Sodium Chloride 0.9% 100 ml @ 25 mls/hr IVPB Q8HR [facility] Rx# :[id number] Oral 480 240 360 Output: Urine 100 Other: Voiding Method Toilet Toilet # Voids 3 3 1 - Exam PHYSICAL EXAMINATION: GENERAL: 82-year-old gentleman in no acute distress at the time of my examination HEENT: Head is atraumatic, normocephalic. Pupils equal, round. Sclera anicteric. Conjunctiva are clear. Mucous membranes of the mouth are moist. Neck is supple. There is no elevated jugular venous pressure. No carotid bruit is heard. HEART EXAMINATION: Heart S1, S2 normal. No murmur or gallop heard. CHEST EXAMINATION: Lungs are clear to auscultation and precussion. No chest wall tenderness is noted on palpation or with deep breathing. ABDOMEN: Soft, nontender. Bowel sounds are heard. No organomegaly noted. EXTREMITIES: 2+ peripheral pulses with no evidence of peripheral edema and no calf tenderness noted. Right groin soft, no evidence of any hematoma. NEUROLOGIC patient is awake, alert and oriented 3 . . - Labs CBC & Chem 7: 06/15/18 07:12 06/15/18 07:12 Labs: Abnormal Lab Results - Last 24 Hours (Table) 06/15/18 06/15/18 Range/Units 07:12 07:12 RBC 3.09 L (4.30-5.90) m/uL Hgb 9.6 L (13.0-17.5) gm/dL Hct 28.8 L (39.0-53.0) % Plt Count 57 L (150-450) k/uL Lymphocytes # 0.1 L (1.0-4.8) k/uL Potassium 3.4 L (3.5-5.1) mmol/L Chloride 111 H (98-107) mmol/L Carbon Dioxide 19 L (22-30) mmol/L BUN 26 H (9-20) mg/dL Calcium 8.3 L (8.4-10.2) mg/dL Total Bilirubin 3.7 H (0.2-1.3) mg/dL Conjugated Bilirubin 1.5 H (0.0-0.3) mg/dL Delta Bilirubin 1.5 H (0.0-0.2) mg/dL AST 76 H (17-59) U/L ALT 112 H (21-72) U/L Alkaline Phosphatase 219 H (38-126) U/L Total Protein 5.0 L (6.3-8.2) g/dL Albumin 2.4 L (3.5-5.0) g/dL Microbiology - Last 24 Hours (Table) 06/13/18 17:38 Blood Culture - Preliminary Blood No Growth after 24 hours Assessment and Plan Plan: Assessment and plan #1 acute coronary syndrome, status post cardiac catheterization which revealed intermediate to severe disease involving the distal RCA, and FFR was performed which came in to be nonischemic at 0.9, maximum medical therapy advised. #2 fever, 101.2 last evening, influenza A and B were negative, abnormal liver enzymes for which GI has been consulted. #3 hypertension #4 hyperlipidemia Plan EchoCardiogram with Doppler study revealed a normal left ventricular systolic function. Cardiology's perspective, we'll recommend to continue the patient on an aspirin which we will decrease to 81 mg daily, Lipitor 80 mg daily, we will discontinue the ibuprofen, continue lisinopril hydrochlorothiazide, metoprolol and Plavix 75 mg daily. We will follow this patient along with you now on an as -needed basis only, please don't hesitate to call with any questions. DNP note has been reviewed, I agree with a documented findings and plan of care. Patient was seen and examined.
[2018-06-15] MEDS: DOCUSATE 100 MG CAP PO PRN (20:32)
--- NOTE | 2018-06-15 21:11 | MR ---
MR pancreas, MRCP without contrast Multiplanar multisequence imaging through the pancreas. Three-dimensional reconstructions of the [employer] system. Correlation to CT chest abdomen pelvis 05/21/2018, ultrasound gallbladder 06/12/2017, CT 03/16/2018 an d 06/12/2017, MRCP 07/06/2017 Lack of intravenous contrast may compromise sensitivity. The liver shows subcentimeter cystic foci within the left lobe and right lobe which are stable, 2 les ions are present. Periportal edema changes are also present. The gallbladder shows pericholecystic fl uid signal on T2-weighted sequences which is developed in the interval, there is mild gallbladder wal l thickening which is not significantly changed. No filling defect to suggest cholelithiasis. Axial i mage 14 of the T2 data set shows a questionable punctate focus of low signal, difficult to exclude sm all stone within the distal common bile duct. Extrahepatic bile duct prominence is stable. There is a small duodenal diverticulum. Small bilateral pleural effusions have developed in the interval, question some bronchial wall thicke buster. Multiple cystic foci are again noted associated with the kidneys. The spleen has become mildly enlarged. Adrenal glands are unremarkable. Stomach is normal. Pancreas shows no mass. There is no ret roperitoneal adenopathy. Vascular flow voids noted within the portal vein, superior mesenteric vein a nd splenic vein. IMPRESSION: Correlate for hepatitis, congestive heart failure, cholangitis. Additional findings above .
[2018-06-15] MEDS: MELATONIN 3 MG TABLET PO PRN (21:42)
[2018-06-16 03:25] LABS: Cancer Antigen 19-9 214.2 U/mL (0.0-34.9)
[2018-06-16 06:42] LABS: Basophils % (A) 0 %; Eosinophils # (A) 0.1 k/uL (0-0.7); Eosinophils % (A) 1 %; HCT 29.7 % (39.0-53.0); Lymphocytes # (A) 0.3 k/uL (1.0-4.8); Lymphocytes % (A) 7 %; MCH 30.8 pg (25.0-35.0); MCHC 33.5 g/dL (31.0-37.0); MCV 91.9 fL (80.0-100.0); Mean Platelet Volume 7.8; Monocytes # (A) 0.3 k/uL (0-1.0); Monocytes % (A) 7 %; Neutrophils % (A) 81 %; RBC 3.23 m/uL (4.30-5.90); RDW 14.3 % (11.5-15.5); WBC 3.7 k/uL (3.8-10.6)
[2018-06-16 06:51] LABS: Albumin 2.5 g/dL (3.5-5.0); Calcium 8.3 mg/dL (8.4-10.2); Potassium 3.6 mmol/L (3.5-5.1); Total Bilirubin 3.8 mg/dL (0.2-1.3); Total Protein 5.1 g/dL (6.3-8.2)
[2018-06-16 06:53] LABS: Platelet Count 66 k/uL (150-450)
[2018-06-16] MEDS ORDERED: POTASSIUM CHLORIDE ER 20 MEQ TAB.ER PO SCH (09:00)
[2018-06-16] MEDS: ASPIRIN 81 MG PO SCH (10:16)
[2018-06-16] MEDS: CLOPIDOGREL 75 MG TAB PO SCH (10:16)
[2018-06-16] MEDS: LISINOPRIL 10 MG TAB PO SCH (10:19)
[2018-06-16] MEDS: PANTOPRAZOLE 40 MG/10 ML VIAL IVP SCH (10:20)
[2018-06-16] MEDS: PIPERACILLIN-TAZOBACTAM 3.375 GM in SODIUM CHLORIDE 0.9% 100 ML IVPB SCH ×3 (10:20→23:13)
[2018-06-16] MEDS: METOPROLOL TARTRATE 25 MG TAB PO SCH ×2 (10:21→20:31)
--- NOTE | 2018-06-16 10:48 | P.PN ---
Subjective Progress Note Date: 06/16/18 Principal diagnosis: Jaundice and elevated liver enzymes Presently denies abdominal pain. Afebrile. White count 3.7. Platelet 66,000. Total bilirubin 3.8. Conjugated 1.5. AST 111. ALT 117. AP 394. History of ampulla tubular adenoma June 2017. MR pancreas MRCP correlate for hepatitis CHF cholangitis. Periportal edema pericholecystic fluid around the gallbladder with mild gallbladder wall thickening not significantly changed from previous study. No filling defect to suggest cholelithiasis. Questionable focus of low signal difficult to exclude small stone within the distal CBD. Extrahepatic bile duct prominence is stable. Small duodenal diverticulum. Pancreas shows no mass. CA-19-9 214. CEA 3.2. Objective - Vital Signs Vital signs: Vital Signs Temp 98.4 F 06/16/18 07:20 Pulse 61 06/16/18 08:00 Resp 16 06/16/18 08:00 BP 114/61 06/16/18 07:20 Pulse Ox 95 06/16/18 03:50 Intake & Output 06/15/18 06/16/18 06/16/18 18:59 06:59 18:59 Intake Total 360 220 120 Output Total 100 Balance 260 220 120 Weight 86 kg Intake: IV 120 0.9 120 Intake, IV Titration 100 Amount Piperacillin-Tazobactam 3 100 .375 gm In Sodium Chloride 0.9% 100 ml @ 25 mls/hr IVPB Q8HR [facility] Rx# :[id number] Oral 360 120 Output: Urine 100 Other: Voiding Method Toilet Toilet # Voids 1 3 # Bowel Movements 1 - Exam General appearance: The patient is alert, oriented, in no acute distress. Jaundice. HET: Head is normocephalic and atraumatic. Pupils are equal and reactive. Sclerae icterus. Oropharynx is clear without lesions. Neck: Supple without lymphadenopathy. Trachea midline. Heart: S1 S2. Regular rate and rhythm. Lungs: No crackles or wheezes are heard. Abdomen: Soft, nontender, nondistended with bowel sounds. No peritoneal signs. No palpable organomegaly or masses. Extremities: Normal skin color and turgor. No cyanosis, rash, ulceration, clubbing, or edema. Radial and pedal pulses are 2/4 bilaterally. Neurological: No focal deficits. Strength and sensation are grossly intact. - Labs CBC & Chem 7: 06/16/18 05:57 06/16/18 05:57 Labs: Abnormal Lab Results - Last 24 Hours (Table) 06/15/18 06/16/18 06/16/18 Range/Units 07:12 05:57 05:57 WBC 3.7 L (3.8-10.6) k/uL RBC 3.23 L (4.30-5.90) m/uL Hgb 10.0 L (13.0-17.5) gm/dL Hct 29.7 L (39.0-53.0) % Plt Count 66 L (150-450) k/uL Lymphocytes # 0.3 L (1.0-4.8) k/uL Chloride 111 H (98-107) mmol/L Carbon Dioxide 19 L (22-30) mmol/L BUN 23 H (9-20) mg/dL Calcium 8.3 L (8.4-10.2) mg/dL Total Bilirubin 3.8 H (0.2-1.3) mg/dL AST 111 H (17-59) U/L ALT 117 H (21-72) U/L Alkaline Phosphatase 394 H (38-126) U/L Total Protein 5.1 L (6.3-8.2) g/dL Albumin 2.5 L (3.5-5.0) g/dL CA 19-9 Antigen 214.2 H (0.0-34.9) U/mL Microbiology - Last 24 Hours (Table) 06/13/18 17:38 Blood Culture - Preliminary Blood No Growth after 48 hours Assessment and Plan (1) Elevated liver enzymes Current Visit: Yes Status: Acute Code(s): R74.8 - ABNORMAL LEVELS OF OTHER SERUM ENZYMES SNOMED Code(s): 979390126 (2) Abdominal pain Current Visit: Yes Status: Acute Code(s): R10.9 - UNSPECIFIED ABDOMINAL PAIN SNOMED Code(s): 70620614 (3) Ampullary adenoma Current Visit: Yes Status: Acute Code(s): D13.5 - BENIGN NEOPLASM OF EXTRAHEPATIC BILE DUCTS SNOMED Code(s): 557917503 (4) Chest pain Current Visit: Yes Status: Acute Code(s): R07.9 - CHEST PAIN, UNSPECIFIED SNOMED Code(s): 91265540 (5) Elevated CA 19-9 level Current Visit: Yes Status: Acute Code(s): R97.8 - OTHER ABNORMAL TUMOR MARKERS SNOMED Code(s): 201896939 (6) History of colon cancer Current Visit: Yes Status: Acute Code(s): Z85.038 - PERSONAL HISTORY OF MALIGNANT NEOPLASM OF LARGE INTESTINE SNOMED Code(s): 802555152 (7) Thrombocytopenia Current Visit: Yes Status: Acute Code(s): D69.6 - THROMBOCYTOPENIA, UNSPECIFIED SNOMED Code(s): 318061055 Plan: 1. MRCP/MR pancreas reviewed by Dr. Leal; he discussed results with patient. EGD ERCP scheduled for tomorrow secondary to receiving aspirin Plavix yesterday. Hold aspirin Plavix today and tomorrow. Continue IV antibiotics. Daily CBC CMP. Healthy heart diet tonight. Nothing by mouth after midnight. Outpatient EUS discussed pending EGD/ERCP findings. Assessment and plan a care discussed with Dr. Leal.
[2018-06-16] MEDS: MULTIVITAMINS, THERA 1 EACH TAB PO SCH (10:58)
[2018-06-16] MEDS: MELATONIN 3 MG TABLET PO PRN (21:42)
[2018-06-17] MEDS: PANTOPRAZOLE 40 MG TABLET PO SCH (04:48)
[2018-06-17 07:30] LABS: Basophils % (A) 0 %; Eosinophils # (A) 0.1 k/uL (0-0.7); Eosinophils % (A) 1 %; HCT 30.7 % (39.0-53.0); HGB 9.9 gm/dL (13.0-17.5); Lymphocytes # (A) 0.3 k/uL (1.0-4.8); Lymphocytes % (A) 7 %; MCHC 32.2 g/dL (31.0-37.0); MCV 93.2 fL (80.0-100.0); Mean Platelet Volume 7.8; Monocytes # (A) 0.4 k/uL (0-1.0); Monocytes % (A) 9 %; Neutrophils # (A) 3.4 k/uL (1.3-7.7); Neutrophils % (A) 79 %; RDW 14.4 % (11.5-15.5); WBC 4.3 k/uL (3.8-10.6)
[2018-06-17 07:36] LABS: Platelet Count 73 k/uL (150-450)
[2018-06-17 07:45] LABS: Albumin 2.5 g/dL (3.5-5.0); Calcium 8.4 mg/dL (8.4-10.2); Potassium 3.6 mmol/L (3.5-5.1); Total Bilirubin 3.4 mg/dL (0.2-1.3); Total Protein 5.2 g/dL (6.3-8.2)
[2018-06-17] MEDS: PIPERACILLIN-TAZOBACTAM 3.375 GM in SODIUM CHLORIDE 0.9% 100 ML IVPB SCH ×3 (08:03→22:27)
[2018-06-17] MEDS: LISINOPRIL 10 MG TAB PO SCH (08:21)
[2018-06-17] MEDS: METOPROLOL TARTRATE 25 MG TAB PO SCH ×2 (08:22→19:56)
[2018-06-17] MEDS: MULTIVITAMINS, THERA 1 EACH TAB PO SCH (11:30)
--- NOTE | 2018-06-17 13:15 | P.PN ---
Subjective Progress Note Date: 06/15/18 Principal diagnosis: Abdominal pain Rule out choledocholithiasis Patient is a 82-year-old male with a known history of hypertension, hyperlipidemia came to ER with complaints of chest discomfort and abdominal pain mainly across the lower anterior chest. Initial EKG showed sinus rhythm with first-degree AV block and sinus tachycardia. Patient was found have slightly elevated troponin level. Patient underwent cardiac catheterization by Dr. 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 Medical therapy was advised. Patient was found to have slightly elevated bilirubin level II.0 on admission. Currently increased to 3.6 along with AST 98 and ALT 143 and alk phos 156. Currently patient denied any complaints of chest pain or shortness of breath. Influenza A and B-. Ultrasound of the abdominal showed no concerning sonographic findings of right upper quadrant. No sonographic evidence of cholecystitis. Right inferior pole renal cyst. 2-D echocardiogram showed normal ejection fraction and no significant valvular abnormalities. No fever no chills. Lactic acidosis level improved. Patient is being continued on antibiotics in the form of Zosyn. GI was consulted.. 06/15/2018 Patient denied any complaints of abdominal pain. No nausea vomiting. No chest pain or shortness of breath. Otherwise bilirubin level slightly trending up to 3.7. Patient was seen by GI and recommended MRI of the pancreas which showed correlate for hepatitis and CHF, cholangitis. Difficult to exclude small stone within the distal common bile duct. Otherwise no acute overnight issues. Patient is being continued on antibiotics in the form of Zosyn. liver enzymes are still elevated. Current medications reviewed. Active Medications Aspirin (Aspirin) 81 mg PO DAILY COUNTS INCLUDE 234 BEDS AT THE [facility] Clopidogrel Bisulfate (Plavix) 75 mg PO DAILY COUNTS INCLUDE 234 BEDS AT THE [facility] Last Admin: 06/14/18 17:16 Dose: 75 mg Docusate Sodium (Colace) 100 mg PO BID PRN PRN Reason: Constipation Last Admin: 06/14/18 21:24 Dose: 100 mg Lisinopril/HCTZ (Zestoretic 20-25) 1 each PO DAILY@1700 COUNTS INCLUDE 234 BEDS AT THE [facility] Last Admin: 06/14/18 17:14 Dose: 1 each Hydromorphone HCl (Dilaudid) 0.5 mg IVP Q6HR PRN PRN Reason: MODERATE Pain Last Admin: 06/13/18 14:33 Dose: 0.5 mg Hydromorphone HCl (Dilaudid) 1 mg IVP Q4HR PRN PRN Reason: SEVERE Pain Piperacillin Sod/Tazobactam (Sod 3.375 gm/ Sodium Chloride) 100 mls @ 25 mls/ hr IVPB Q8HR COUNTS INCLUDE 234 BEDS AT THE [facility] Last Admin: 06/14/18 23:11 Dose: 25 mls/hr Ibuprofen (Motrin) 400 mg PO Q4HR PRN PRN Reason: Fever and/or Mild Pain Last Admin: 06/14/18 20:46 Dose: 400 mg Melatonin (Melatonin) 6 mg PO HS PRN PRN Reason: Insomnia Last Admin: 06/14/18 21:24 Dose: 6 mg Metoprolol Tartrate (Lopressor) 25 mg PO BID COUNTS INCLUDE 234 BEDS AT THE [facility] Last Admin: 06/14/18 20:46 Dose: 25 mg Miscellaneous Information (Rx Info: Iv Contrast Was Given) 1 each MISCELLANE DAILY PRN PRN Reason: Per Protocol Stop: 06/15/18 15:55 Multivitamins (Theragran) 1 each PO DAILY@1200 COUNTS INCLUDE 234 BEDS AT THE [facility] Last Admin: 06/14/18 08:39 Dose: 1 each Nitroglycerin (Nitrostat) 0.4 mg SUBLINGUAL Q5M PRN PRN Reason: Chest Pain Last Admin: 06/13/18 14:12 Dose: 0.4 mg Pantoprazole Sodium (Protonix) 40 mg IVP DAILY COUNTS INCLUDE 234 BEDS AT THE [facility] Last Admin: 06/14/18 08:39 Dose: 40 mg Objective - Vital Signs Vital signs: Vital Signs Temp 98.6 F 06/15/18 11:42 Pulse 72 06/15/18 11:42 Resp 14 06/15/18 11:42 BP 114/58 06/15/18 11:42 Pulse Ox 96 06/15/18 11:42 Intake & Output 06/14/18 06/15/18 06/15/18 18:59 06:59 18:59 Intake Total 480 540 360 Output Total 100 Balance 480 540 260 Weight 85 kg Intake: IV 200 0.9 200 Intake, IV Titration 100 Amount Piperacillin-Tazobactam 3 100 .375 gm In Sodium Chloride 0.9% 100 ml @ 25 mls/hr IVPB Q8HR COUNTS INCLUDE 234 BEDS AT THE [facility] Rx# :[id number] Oral 480 240 360 Output: Urine 100 Other: Voiding Method Toilet Toilet # Voids 3 3 1 - Exam PHYSICAL EXAMINATION: Patient is lying in the bed comfortably, no acute distress, awake alert and oriented.. HEENT: Normocephalic. Neck is supple. Pupils reactive. Mild icterus. Nostrils clear. Oral cavity is moist. Ears reveal no drainage. Neck reveals no JVD, carotid bruits, or thyromegaly. CHEST EXAMINATION: Trachea is central. Symmetrical expansion. Lung brennan clear to auscultation and percussion. CARDIAC: Normal S1, S2 with no gallops. No murmurs ABDOMEN: Soft. Bowel sounds normal. No organomegaly. No abdominal bruits. Extremities: reveal no edema. No clubbing or cyanosis Neurologically awake, alert, oriented x3 with well-coordinated movements. No focal deficits noted Skin: No rash or skin lesions. Psychiatric: Coperative. Nonsuicidal Musculoskeletal: No joint swelling or deformity. Normal range of motion. - Labs CBC & Chem 7: 06/17/18 07:04 06/17/18 07:04 Labs: Abnormal Lab Results - Last 24 Hours (Table) 06/15/18 06/15/18 Range/Units 07:12 07:12 RBC 3.09 L (4.30-5.90) m/uL Hgb 9.6 L (13.0-17.5) gm/dL Hct 28.8 L (39.0-53.0) % Plt Count 57 L (150-450) k/uL Lymphocytes # 0.1 L (1.0-4.8) k/uL Potassium 3.4 L (3.5-5.1) mmol/L Chloride 111 H (98-107) mmol/L Carbon Dioxide 19 L (22-30) mmol/L BUN 26 H (9-20) mg/dL Calcium 8.3 L (8.4-10.2) mg/dL Total Bilirubin 3.7 H (0.2-1.3) mg/dL Conjugated Bilirubin 1.5 H (0.0-0.3) mg/dL Delta Bilirubin 1.5 H (0.0-0.2) mg/dL AST 76 H (17-59) U/L ALT 112 H (21-72) U/L Alkaline Phosphatase 219 H (38-126) U/L Total Protein 5.0 L (6.3-8.2) g/dL Albumin 2.4 L (3.5-5.0) g/dL Microbiology - Last 24 Hours (Table) 06/13/18 17:38 Blood Culture - Preliminary Blood No Growth after 24 hours Assessment and Plan Assessment: Upper abdominal pain with hyperbilirubinemia. Suspected choledochal stone versus stricture Acute non-ST elevated HI with Elevated troponin level status post cath. Medical therapy advised. Suspicious lesion in the ampulla as per previous MRCP Elevated AST and ALT Lactic acidosis resolved. Hypertension Hyperlipidemia History of colon cancer status post chemotherapy History of back surgery and degenerative joint disease History of nicotine dependence DVT prophylaxis Plan: Patient will be continued on maximal medical therapy with aspirin, atorvastatin , lisinopril metoprolol and Plavix. GI was consulted for hyperbilirubinemia and also fever on admission. Continue with antibiotics in the form of Zosyn. Cardiology is on board. Further recommendations based on the clinical course. Prognosis is guarded with multiple medical problems and comorbid conditions. Time with Patient: Greater than 30
--- NOTE | 2018-06-17 13:23 | P.PN ---
Subjective Progress Note Date: 06/16/18 Principal diagnosis: Abdominal pain Rule out choledocholithiasis Patient is a 82-year-old male with a known history of hypertension, hyperlipidemia came to ER with complaints of chest discomfort and abdominal pain mainly across the lower anterior chest. Initial EKG showed sinus rhythm with first-degree AV block and sinus tachycardia. Patient was found have slightly elevated troponin level. Patient underwent cardiac catheterization by Dr. 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 Medical therapy was advised. Patient was found to have slightly elevated bilirubin level II.0 on admission. Currently increased to 3.6 along with AST 98 and ALT 143 and alk phos 156. Currently patient denied any complaints of chest pain or shortness of breath. Influenza A and B-. Ultrasound of the abdominal showed no concerning sonographic findings of right upper quadrant. No sonographic evidence of cholecystitis. Right inferior pole renal cyst. 2-D echocardiogram showed normal ejection fraction and no significant valvular abnormalities. No fever no chills. Lactic acidosis level improved. Patient is being continued on antibiotics in the form of Zosyn. GI was consulted.. 06/15/2018 Patient denied any complaints of abdominal pain. No nausea vomiting. No chest pain or shortness of breath. Otherwise bilirubin level slightly trending up to 3.7. Patient was seen by GI and recommended MRI of the pancreas which showed correlate for hepatitis and CHF, cholangitis. Difficult to exclude small stone within the distal common bile duct. Otherwise no acute overnight issues. Patient is being continued on antibiotics in the form of Zosyn. liver enzymes are still elevated. 06/16/2018 Patient denied any complaints today. Patient is still having hyperlipidemia which is increasing to 3.8. Still having leg elevated liver tests. GI is planning for EGD and ERCP tomorrow. No fever no chills. Continued on antibiotics otherwise. Current medications reviewed. Active Medications Aspirin (Aspirin) 81 mg PO DAILY [facility] Clopidogrel Bisulfate (Plavix) 75 mg PO DAILY [facility] Last Admin: 06/14/18 17:16 Dose: 75 mg Docusate Sodium (Colace) 100 mg PO BID PRN PRN Reason: Constipation Last Admin: 06/14/18 21:24 Dose: 100 mg Lisinopril/HCTZ (Zestoretic 20-25) 1 each PO DAILY@1700 [facility] Last Admin: 06/14/18 17:14 Dose: 1 each Hydromorphone HCl (Dilaudid) 0.5 mg IVP Q6HR PRN PRN Reason: MODERATE Pain Last Admin: 06/13/18 14:33 Dose: 0.5 mg Hydromorphone HCl (Dilaudid) 1 mg IVP Q4HR PRN PRN Reason: SEVERE Pain Piperacillin Sod/Tazobactam (Sod 3.375 gm/ Sodium Chloride) 100 mls @ 25 mls/ hr IVPB Q8HR [facility] Last Admin: 06/14/18 23:11 Dose: 25 mls/hr Ibuprofen (Motrin) 400 mg PO Q4HR PRN PRN Reason: Fever and/or Mild Pain Last Admin: 06/14/18 20:46 Dose: 400 mg Melatonin (Melatonin) 6 mg PO HS PRN PRN Reason: Insomnia Last Admin: 06/14/18 21:24 Dose: 6 mg Metoprolol Tartrate (Lopressor) 25 mg PO BID [facility] Last Admin: 06/14/18 20:46 Dose: 25 mg Miscellaneous Information (Rx Info: Iv Contrast Was Given) 1 each MISCELLANE DAILY PRN PRN Reason: Per Protocol Stop: 06/15/18 15:55 Multivitamins (Theragran) 1 each PO DAILY@1200 [facility] Last Admin: 06/14/18 08:39 Dose: 1 each Nitroglycerin (Nitrostat) 0.4 mg SUBLINGUAL Q5M PRN PRN Reason: Chest Pain Last Admin: 06/13/18 14:12 Dose: 0.4 mg Pantoprazole Sodium (Protonix) 40 mg IVP DAILY [facility] Last Admin: 06/14/18 08:39 Dose: 40 mg Objective - Vital Signs Vital signs: Vital Signs Temp 98.1 F 06/16/18 15:27 Pulse 60 06/16/18 16:00 Resp 16 06/16/18 16:00 BP 113/57 06/16/18 15:27 Pulse Ox 96 06/16/18 15:27 Intake & Output 06/16/18 06/16/18 06/17/18 06:59 18:59 06:59 Intake Total 220 564 Output Total 1201 Balance 220 -637 Weight 86 kg Intake: IV 120 0.9 120 Intake, IV Titration 100 Amount Piperacillin-Tazobactam 3 100 .375 gm In Sodium Chloride 0.9% 100 ml @ 25 mls/hr IVPB Q8HR [facility] Rx# :[id number] Oral 564 Output: Urine 1200 Stool 1 Other: Voiding Method Toilet Toilet Urinal # Voids 3 2 # Bowel Movements 1 - Exam PHYSICAL EXAMINATION: Patient is lying in the bed comfortably, no acute distress, awake alert and oriented.. HEENT: Normocephalic. Neck is supple. Pupils reactive. Mild icterus. Nostrils clear. Oral cavity is moist. Ears reveal no drainage. Neck reveals no JVD, carotid bruits, or thyromegaly. CHEST EXAMINATION: Trachea is central. Symmetrical expansion. Lung brennan clear to auscultation and percussion. CARDIAC: Normal S1, S2 with no gallops. No murmurs ABDOMEN: Soft. Bowel sounds normal. No organomegaly. No abdominal bruits. Extremities: reveal no edema. No clubbing or cyanosis Neurologically awake, alert, oriented x3 with well-coordinated movements. No focal deficits noted Skin: No rash or skin lesions. Psychiatric: Coperative. Nonsuicidal Musculoskeletal: No joint swelling or deformity. Normal range of motion. - Labs CBC & Chem 7: 06/17/18 07:04 06/17/18 07:04 Labs: Abnormal Lab Results - Last 24 Hours (Table) 06/15/18 06/16/18 06/16/18 Range/Units 07:12 05:57 05:57 WBC 3.7 L (3.8-10.6) k/uL RBC 3.23 L (4.30-5.90) m/uL Hgb 10.0 L (13.0-17.5) gm/dL Hct 29.7 L (39.0-53.0) % Plt Count 66 L (150-450) k/uL Lymphocytes # 0.3 L (1.0-4.8) k/uL Chloride 111 H (98-107) mmol/L Carbon Dioxide 19 L (22-30) mmol/L BUN 23 H (9-20) mg/dL Calcium 8.3 L (8.4-10.2) mg/dL Total Bilirubin 3.8 H (0.2-1.3) mg/dL AST 111 H (17-59) U/L ALT 117 H (21-72) U/L Alkaline Phosphatase 394 H (38-126) U/L Total Protein 5.1 L (6.3-8.2) g/dL Albumin 2.5 L (3.5-5.0) g/dL CA 19-9 Antigen 214.2 H (0.0-34.9) U/mL Microbiology - Last 24 Hours (Table) 06/13/18 17:38 Blood Culture - Preliminary Blood No Growth after 48 hours Assessment and Plan Assessment: Upper abdominal pain with hyperbilirubinemia. Suspected choledochal/ biliary ductal stone versus stricture. Acute non-ST elevated [place] with Elevated troponin level status post cath. Medical therapy advised. Suspicious lesion in the ampulla as per previous MRCP Elevated AST and ALT Lactic acidosis resolved. Hypertension Hyperlipidemia History of colon cancer status post chemotherapy History of back surgery and degenerative joint disease History of nicotine dependence DVT prophylaxis Plan: Patient will be continued on maximal medical therapy with aspirin, atorvastatin , lisinopril metoprolol and Plavix. GI was consulted for hyperbilirubinemia and also fever on admission. Fever has resolved. Continue with antibiotics in the form of Zosyn. Cardiology is on board. Further recommendations based on the clinical course. Prognosis is guarded with multiple medical problems and comorbid conditions. Time with Patient: Greater than 30
[2018-06-17] MEDS ORDERED: INDOMETHACIN 50MG SUPPOSITORY RECTAL ONE (15:00)
[2018-06-17] MEDS: MELATONIN 3 MG TABLET PO PRN (19:56)
[2018-06-18 07:33] LABS: Basophils % (A) 0 %; Eosinophils # (A) 0.1 k/uL (0-0.7); Eosinophils % (A) 2 %; HCT 31.1 % (39.0-53.0); Lymphocytes # (A) 0.4 k/uL (1.0-4.8); Lymphocytes % (A) 7 %; MCH 30.5 pg (25.0-35.0); MCHC 32.3 g/dL (31.0-37.0); MCV 94.5 fL (80.0-100.0); Mean Platelet Volume 7.7; Monocytes # (A) 0.5 k/uL (0-1.0); Monocytes % (A) 10 %; Neutrophils # (A) 3.9 k/uL (1.3-7.7); Neutrophils % (A) 77 %; RBC 3.29 m/uL (4.30-5.90); RDW 14.4 % (11.5-15.5); WBC 5.1 k/uL (3.8-10.6)
[2018-06-18 07:39] LABS: Albumin 2.6 g/dL (3.5-5.0); Calcium 8.5 mg/dL (8.4-10.2); Potassium 3.7 mmol/L (3.5-5.1); Total Bilirubin 3.2 mg/dL (0.2-1.3); Total Protein 5.3 g/dL (6.3-8.2)
[2018-06-18 07:49] LABS: Platelet Count 85 k/uL (150-450)
[2018-06-18] MEDS: PIPERACILLIN-TAZOBACTAM 3.375 GM in SODIUM CHLORIDE 0.9% 100 ML IVPB SCH ×2 (08:13→17:02)
[2018-06-18 11:28] LABS: Glucose,Whole Blood 78 mg/dL (75-99)
[2018-06-18] MEDS ORDERED: INDOMETHACIN 50MG SUPPOSITORY RECTAL ONE (13:00)
[2018-06-18] MEDS ORDERED: SUCCINYLCHOLINE CHLORIDE 100 MG/5 ML SYR IV ONE (13:41)
[2018-06-18] MEDS ORDERED: fentaNYL (PF) 50 MCG/ML 2 ML AMP ONE (13:41)
[2018-06-18] MEDS ORDERED: PROPOFOL 10 MG/ML 20 ML VIAL IV ONE (13:41)
[2018-06-18] MEDS ORDERED: ePHEDrine SULFATE/0.9% NACL/PF 50 MG/5 ML SYRINGE IV ONE (13:41)
[2018-06-18] MEDS ORDERED: IV FLUID CONTINUATION 300 ML IV ONE (13:50)
[2018-06-18] MEDS ORDERED: LACTATED RINGERS 500 ML IV ONE (14:00)
[2018-06-18] MEDS ORDERED: IOHEXOL 350 MG/ML 50ML BOTTLE PO ONE (14:05)
[2018-06-18] MEDS ORDERED: SODIUM CHLORIDE 0.9% 500 ML 500 ML IV ONE ×2 (15:38)
[2018-06-18 15:56] VITALS: RESP 18
--- NOTE | 2018-06-18 15:58 | FL ---
Fluoroscopy History: ERCP 3 images scanned. [address] Leal
--- NOTE | 2018-06-18 16:16 | P.PCN ---
Date of Procedure: 06/18/18 Description of Procedure: Brief history: The patient is a pleasant 82-year-old male with a medical history significant for hypertension, dyslipidemia, colonic adenocarcinoma status post right hemicolectomy presented to the hospital with complaints of chest discomfort. The patient presented with complaints of chest pain described as a diffuse discomfort across his chest pressure-like in sensation with associated shortness of breath. He subsequently underwent cardiac evaluation including a catheterization which was essentially negative. On his admission the patient was also found to have elevation in his liver enzymes with a total bilirubin 3.6 , alkaline phosphatase 156, AST 90 and ALT 143. The patient had previously had an MRCP approximately 1 year ago which was suspicious for an ampullary mass and subsequently underwent an EGD on 06/2017 which was significant for esophagitis and a prominent ampulla which was biopsied is significant for a tubular adenoma. On this admission the patient had a viral hepatitis panel which was negative and an ultrasound of the abdomen which showed a 0.9 cm common bile duct with a gallbladder within normal limits. Repeat MRCP on this hospitalization showed stable extrahepatic biliary dilation as well as some pericholecystic fluid and mild gallbladder wall thickening. Procedure performed: ERCP with cholangiogram, sphincterotomy, plastic stent placement and biopsy. Preoperative diagnoses: Elevated total bilirubin, history of ampullary tubular adenoma, dilated common bile duct, abnormal MRCP IV sedation per anesthesia Estimated blood loss: Minimal. Procedure: After informed consent was obtained from the patient and after the risks benefits and complications including bleeding perforation and pancreatitis explained in detail the patient was brought into the endoscopy unit. The patient was placed in prone position and IV conscious sedation was administered by anesthesia. The Olympus side-viewing duodenoscope was then inserted into the mouth and esophagus intubated without any difficulty. The scope was gradually advanced into the stomach and duodenum. The major papilla was identified without any difficulty. The ampulla was located next to a duodenal diverticulum. The ampulla appeared grossly normal with minor calcifications noted. Successful cannulation of the ampulla was performed with a sphincterotome, with a guidewire passed into the common bile duct. Cholangiogram was then performed and confirmed cannulation of the common bile duct with intrahepatic ducts noted. There was diffuse dilation of the common bile duct noted. A 5 mm sphincterotomy was then performed. A 5 cm x 7-Iraqi double pigtail stent was then deployed into the common bile duct. This was confirmed via fluoroscopy. Ampullary biopsies were then taken. The pancreatic duct was not cannulated or injected. The side-viewing duodenoscope was then withdrawn with air suctioned. The patient tolerated the procedure well. Impression: ERCP with cholangiogram significant for a dilated common bile duct. Sphincterotomy with plastic stent placement. Ampullary biopsies given history of tubular adenoma. Recommendations: The findings of this examination were discussed with the patient as well as a family. Monitor for signs or symptoms of pancreatitis. Okay for full liquid diet tonight, advance as tolerated. Await pathology from biopsies. Given history of ampullary tubular adenoma patient will need referral to [facility] for endoscopic ultrasound. Continue to hold Plavix, okay to resume on 06/21/2018. Follow up with gastroenterology in one to 2 weeks after discharge.
[2018-06-18] MEDS: CLOPIDOGREL 75 MG TAB PO SCH (17:00)
[2018-06-18] MEDS: PANTOPRAZOLE 40 MG TABLET PO SCH (17:00)
[2018-06-18] MEDS: ASPIRIN 81 MG PO SCH (17:01)
[2018-06-18] MEDS: MULTIVITAMINS, THERA 1 EACH TAB PO SCH (17:01)
[2018-06-18] MEDS: LISINOPRIL 10 MG TAB PO SCH (17:01)
[2018-06-18] MEDS: METOPROLOL TARTRATE 25 MG TAB PO SCH (17:01)
[2018-06-18 17:24] VITALS: BP 175/82; PULSE 77; TEMP 97.6
--- NOTE | 2018-06-18 19:01 | P.PN ---
Subjective Progress Note Date: 06/17/18 Principal diagnosis: Abdominal pain Rule out choledocholithiasis Patient is a 82-year-old male with a known history of hypertension, hyperlipidemia came to ER with complaints of chest discomfort and abdominal pain mainly across the lower anterior chest. Initial EKG showed sinus rhythm with first-degree AV block and sinus tachycardia. Patient was found have slightly elevated troponin level. Patient underwent cardiac catheterization by Dr. 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 Medical therapy was advised. Patient was found to have slightly elevated bilirubin level II.0 on admission. Currently increased to 3.6 along with AST 98 and ALT 143 and alk phos 156. Currently patient denied any complaints of chest pain or shortness of breath. Influenza A and B-. Ultrasound of the abdominal showed no concerning sonographic findings of right upper quadrant. No sonographic evidence of cholecystitis. Right inferior pole renal cyst. 2-D echocardiogram showed normal ejection fraction and no significant valvular abnormalities. No fever no chills. Lactic acidosis level improved. Patient is being continued on antibiotics in the form of Zosyn. GI was consulted.. 06/15/2018 Patient denied any complaints of abdominal pain. No nausea vomiting. No chest pain or shortness of breath. Otherwise bilirubin level slightly trending up to 3.7. Patient was seen by GI and recommended MRI of the pancreas which showed correlate for hepatitis and CHF, cholangitis. Difficult to exclude small stone within the distal common bile duct. Otherwise no acute overnight issues. Patient is being continued on antibiotics in the form of Zosyn. liver enzymes are still elevated. 06/16/2018 Patient denied any complaints today. Patient is still having hyperlipidemia which is increasing to 3.8. Still having leg elevated liver tests. GI is planning for EGD and ERCP tomorrow. No fever no chills. Continued on antibiotics otherwise. 06/17/2018 Patient denied any complaints of chest pain or shortness. No complaints of abdominal pain. Patient is scheduled for ERCP with sphincter dilation today. No other acute overnight issues. Current medications reviewed. Active Medications Aspirin (Aspirin) 81 mg PO DAILY [facility] Clopidogrel Bisulfate (Plavix) 75 mg PO DAILY [facility] Last Admin: 06/14/18 17:16 Dose: 75 mg Docusate Sodium (Colace) 100 mg PO BID PRN PRN Reason: Constipation Last Admin: 06/14/18 21:24 Dose: 100 mg Lisinopril/HCTZ (Zestoretic ) 1 each PO DAILY@1700 [facility] Last Admin: 06/14/18 17:14 Dose: 1 each Hydromorphone HCl (Dilaudid) 0.5 mg IVP Q6HR PRN PRN Reason: MODERATE Pain Last Admin: 06/13/18 14:33 Dose: 0.5 mg Hydromorphone HCl (Dilaudid) 1 mg IVP Q4HR PRN PRN Reason: SEVERE Pain Piperacillin Sod/Tazobactam (Sod 3.375 gm/ Sodium Chloride) 100 mls @ 25 mls/ hr IVPB Q8HR [facility] Last Admin: 06/14/18 23:11 Dose: 25 mls/hr Ibuprofen (Motrin) 400 mg PO Q4HR PRN PRN Reason: Fever and/or Mild Pain Last Admin: 06/14/18 20:46 Dose: 400 mg Melatonin (Melatonin) 6 mg PO HS PRN PRN Reason: Insomnia Last Admin: 06/14/18 21:24 Dose: 6 mg Metoprolol Tartrate (Lopressor) 25 mg PO BID [facility] Last Admin: 06/14/18 20:46 Dose: 25 mg Miscellaneous Information (Rx Info: Iv Contrast Was Given) 1 each MISCELLANE DAILY PRN PRN Reason: Per Protocol Stop: 06/15/18 15:55 Multivitamins (Theragran) 1 each PO DAILY@1200 [facility] Last Admin: 06/14/18 08:39 Dose: 1 each Nitroglycerin (Nitrostat) 0.4 mg SUBLINGUAL Q5M PRN PRN Reason: Chest Pain Last Admin: 06/13/18 14:12 Dose: 0.4 mg Pantoprazole Sodium (Protonix) 40 mg IVP DAILY [facility] Last Admin: 06/14/18 08:39 Dose: 40 mg Objective - Vital Signs Vital signs: Vital Signs Temp 98.6 F 06/17/18 11:48 Pulse 57 L 06/17/18 11:48 Resp 18 06/17/18 11:48 BP 123/60 06/17/18 11:48 Pulse Ox 96 06/17/18 11:48 Intake & Output 06/16/18 06/17/18 06/17/18 18:59 06:59 18:59 Intake Total 564 400 170 Output Total 1201 2 Balance -637 398 170 Weight 83.7 kg Intake: IV 60 70 0.9 60 70 Intake, IV Titration 100 100 Amount Piperacillin-Tazobactam 3 100 100 .375 gm In Sodium Chloride 0.9% 100 ml @ 25 mls/hr IVPB Q8HR [facility] Rx# :[id number] Oral 564 240 Output: Urine 1200 Stool 1 2 Other: Voiding Method Toilet Toilet Toilet Urinal Urinal # Voids 2 2 1 # Bowel Movements 1 - Exam PHYSICAL EXAMINATION: Patient is lying in the bed comfortably, no acute distress, awake alert and oriented.. HEENT: Normocephalic. Neck is supple. Pupils reactive. Mild icterus. Nostrils clear. Oral cavity is moist. Ears reveal no drainage. Neck reveals no JVD, carotid bruits, or thyromegaly. CHEST EXAMINATION: Trachea is central. Symmetrical expansion. Lung brennan clear to auscultation and percussion. CARDIAC: Normal S1, S2 with no gallops. No murmurs ABDOMEN: Soft. Bowel sounds normal. No organomegaly. No abdominal bruits. Extremities: reveal no edema. No clubbing or cyanosis Neurologically awake, alert, oriented x3 with well-coordinated movements. No focal deficits noted Skin: No rash or skin lesions. Psychiatric: Coperative. Nonsuicidal Musculoskeletal: No joint swelling or deformity. Normal range of motion. - Labs CBC & Chem 7: 06/18/18 06:36 06/18/18 06:36 Labs: Abnormal Lab Results - Last 24 Hours (Table) 06/17/18 06/17/18 Range/Units 07:04 07:04 RBC 3.30 L (4.30-5.90) m/uL Hgb 9.9 L (13.0-17.5) gm/dL Hct 30.7 L (39.0-53.0) % Plt Count 73 L (150-450) k/uL Lymphocytes # 0.3 L (1.0-4.8) k/uL Chloride 112 H (98-107) mmol/L Carbon Dioxide 18 L (22-30) mmol/L Total Bilirubin 3.4 H (0.2-1.3) mg/dL AST 146 H (17-59) U/L ALT 146 H (21-72) U/L Alkaline Phosphatase 516 H (38-126) U/L Total Protein 5.2 L (6.3-8.2) g/dL Albumin 2.5 L (3.5-5.0) g/dL Microbiology - Last 24 Hours (Table) 06/13/18 17:38 Blood Culture - Preliminary Blood No Growth after 72 hours Assessment and Plan Assessment: Upper abdominal pain with hyperbilirubinemia. Suspected choledochal/ biliary ductal stone versus stricture. Acute non-ST elevated ID with Elevated troponin level status post cath. Medical therapy advised. Suspicious lesion in the ampulla as per previous MRCP Elevated AST and ALT Lactic acidosis resolved. Hypertension Hyperlipidemia History of colon cancer status post chemotherapy History of back surgery and degenerative joint disease History of nicotine dependence DVT prophylaxis Plan: Patient will be continued on maximal medical therapy with aspirin, atorvastatin , lisinopril metoprolol and Plavix. GI was consulted for hyperbilirubinemia and also fever on admission. Fever has resolved. Continue with antibiotics in the form of Zosyn. Cardiology is on board. Further recommendations based on the clinical course. Prognosis is guarded with multiple medical problems and comorbid conditions. Time with Patient: Greater than 30
--- NOTE | 2018-06-18 19:06 | P.DS ---
Providers Date of admission: 06/14/18 08:50 Expected date of discharge: 06/18/18 Attending physician: Anish Coughlin Consults: 06/12/18 17:19 Consult Physician Routine Consulting Provider: Kathia Liu Consult Reason/Comments: abdLabs Do you want consulting provider notified?: Yes Consult Physician Urgent Consulting Provider: Robert Mai Consult Reason/Comments: cp Do you want consulting provider notified?: Yes 06/13/18 14:07 Consult Physician Routine Consulting Provider: Bri Connell Consult Reason/Comments: ampullar lesion- ERCP?? Do you want consulting provider notified?: Yes Primary care physician: Kathia [facility] Course: Discharge diagnosis Upper abdominal pain with hyperbilirubinemia. Status post ERCP with sphincterotomy with stent placement.. Will need to follow up with [facility]. Acute non-ST elevated CA with Elevated troponin level status post cath. Medical therapy advised. Suspicious lesion in the ampulla as per previous MRCP Elevated AST and ALT Lactic acidosis resolved. Hypertension Hyperlipidemia History of colon cancer status post chemotherapy History of back surgery and degenerative joint disease History of nicotine dependence DVT prophylaxis Hospital course Patient is a 82-year-old male with a known history of hypertension, hyperlipidemia came to ER with complaints of chest discomfort and abdominal pain mainly across the lower anterior chest. Initial EKG showed sinus rhythm with first-degree AV block and sinus tachycardia. Patient was found have slightly elevated troponin level. Patient underwent cardiac catheterization by Dr. 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 Medical therapy was advised. Patient was found to have slightly elevated bilirubin level II.0 on admission. Currently increased to 3.6 along with AST 98 and ALT 143 and alk phos 156. Currently patient denied any complaints of chest pain or shortness of breath. Influenza A and B-. Ultrasound of the abdominal showed no concerning sonographic findings of right upper quadrant. No sonographic evidence of cholecystitis. Right inferior pole renal cyst. 2-D echocardiogram showed normal ejection fraction and no significant valvular abnormalities. No fever no chills. Lactic acidosis level improved. Patient is being continued on antibiotics in the form of Zosyn. GI was consulted.. 06/15/2018 Patient denied any complaints of abdominal pain. No nausea vomiting. No chest pain or shortness of breath. Otherwise bilirubin level slightly trending up to 3.7. Patient was seen by GI and recommended MRI of the pancreas which showed correlate for hepatitis and CHF, cholangitis. Difficult to exclude small stone within the distal common bile duct. Otherwise no acute overnight issues. Patient is being continued on antibiotics in the form of Zosyn. liver enzymes are still elevated. 06/16/2018 Patient denied any complaints today. Patient is still having hyperlipidemia which is increasing to 3.8. Still having leg elevated liver tests. GI is planning for EGD and ERCP tomorrow. No fever no chills. Continued on antibiotics otherwise. 06/17/2018 Patient denied any complaints of chest pain or shortness. No complaints of abdominal pain. Patient is scheduled for ERCP with sphincter dilation today. No other acute overnight issues. 06/18/2018. Patient did have ERCP today ERCP with cholangiogram significant for a dilated common bile duct. Sphincterotomy with plastic stent placement. 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 Continue to hold Plavix, okay to resume on 06/21/2018. Patient was continued on maximal medical therapy with aspirin, atorvastatin, lisinopril metoprolol and Plavix. GI was consulted for hyperbilirubinemia. Patient is status post ERCP. Continued on IV antibiotics in the form of Zosyn in the hospital. No fever now. Stable to be discharged home and follow up with GI in 2 weeks. Discussed with the patient and his at bedside in detail. PHYSICAL EXAMINATION: Patient is lying in the bed comfortably, no acute distress, awake alert and oriented.. HEENT: Normocephalic. Neck is supple. Pupils reactive. Nostrils clear. Oral cavity is moist. Ears reveal no drainage. Neck reveals no JVD, carotid bruits, or thyromegaly. CHEST EXAMINATION: Trachea is central. Symmetrical expansion. Lung brennan clear to auscultation and percussion. CARDIAC: Normal S1, S2 with no gallops. No murmurs ABDOMEN: Soft. Bowel sounds normal. No organomegaly. No abdominal bruits. Extremities: reveal no edema. No clubbing or cyanosis Neurologically awake, alert, oriented x3 with well-coordinated movements. No focal deficits noted Skin: No rash or skin lesions. Psychiatric: Coperative. Nonsuicidal Musculoskeletal: No joint swelling or deformity. Normal range of motion. Vital Signs 06/18/18 06/18/18 06/18/18 11:41 12:36 14:05 Temperature 97.8 F Pulse Rate [ 55 L 69 Shank Pinner ] Respiratory 16 16 16 Rate Blood Pressure 150/68 133/60 [Left Arm] Blood Pressure [Right Arm] O2 Sat by Pulse 98 Oximetry 06/18/18 06/18/18 06/18/18 15:38 15:50 16:00 Temperature 97.4 F L 97.6 F Pulse Rate [ 71 62 77 Shank Pinner ] Respiratory 71 H 18 18 Rate Blood Pressure 135/59 140/58 175/82 [Left Arm] Blood Pressure 135/59 [Right Arm] O2 Sat by Pulse 94 L 94 L 95 Oximetry Total time taken greater than 35 minutes including 18 minutes for counseling and coordination of care. Patient Condition at Discharge: Good Plan - Discharge Summary Discharge Rx Participant: No New Discharge Prescriptions: New Clopidogrel [Plavix] 75 mg PO DAILY #30 tab Metoprolol Tartrate [Lopressor] 25 mg PO BID #60 tab Continue Lisinopril-Hctz 20-25 mg [Zestoretic 20-25] 1 each PO DAILY@1700 Atorvastatin [Lipitor] 20 mg PO DAILY@1700 Aspirin [Adult Low Dose Aspirin EC] 81 mg PO Omeprazole 20 mg PO DAILY Cranberry Fruit Extract [Cranberry] 200 mg PO DAILY Multivitamins, Thera [Multivitamin (formulary)] 1 tab PO DAILY Discharge Medication List Atorvastatin [Lipitor] 20 mg PO DAILY@1700 03/29/15 [History] Lisinopril-Hctz 20-25 mg [Zestoretic 20-25] 1 each PO DAILY@1700 03/29/15 [ History] Aspirin [Adult Low Dose Aspirin EC] 81 mg PO 07/09/17 [History] Cranberry Fruit Extract [Cranberry] 200 mg PO DAILY 06/12/18 [History] Multivitamins, Thera [Multivitamin (formulary)] 1 tab PO DAILY 06/12/18 [History ] Omeprazole 20 mg PO DAILY 06/12/18 [History] Clopidogrel [Plavix] 75 mg PO DAILY #30 tab 06/18/18 [Rx] Metoprolol Tartrate [Lopressor] 25 mg PO BID #60 tab 06/18/18 [Rx] Follow up Appointment(s)/Referral(s): [facility] [Provider Group] - 1 Week (call thursday for appt) Kathia Valdovinos MD [Primary Care Provider] - 06/22/18 10:30 am (Thursday) Socrates Leal MD [STAFF PHYSICIAN] - 2 Weeks (call thursday for appt) Patient Instructions/Handouts: *Surgery [facility] - After Heart Catheterization - Software Project Manager Instructions, Chest Pain (ED), Heart Healthy Diet (DC), ERCP ( Endoscopic Retrograde Cholangiopancreatography) (DC) Activity/Diet/Wound Care/Special Instructions: resume plavix 06/22/2018 Discharge Disposition: HOME SELF-CARE
[2018-06-19] MEDS ORDERED: NON-FORMULARY DRUG (Cranberry Fruit Extract [Cranberry] 200 MG) PO SCH (09:00)
[2018-06-19] MEDS ORDERED: ASPIRIN 81 MG PO SCH (09:00)
[2018-06-19] MEDS ORDERED: ATORVASTATIN 20 MG TAB PO SCH (17:00)
== END 2018-06-18 19:15 | disposition home or self-care (01) | DRG 391 ==
LOC: EC 14:03 → 3SCARD 17:19 → OBSVTOIN 06-14 08:50
PROVIDERS: ADMIT Hospitalist; ATTEND Hospitalist
PROC: 4A033BC Measurement of Arterial Pressure, Coronary, Percutaneous Approach (ICD-10-PCS; 2018-06-13)
PROC: 4A023N7 Measurement of Cardiac Sampling and Pressure, Left Heart, Percutaneous Approach (ICD-10-PCS; principal; 2018-06-13 14:40)
PROC: B2111ZZ Fluoroscopy of Multiple Coronary Arteries using Low Osmolar Contrast (ICD-10-PCS; 2018-06-13 14:40)
PROC: 0F798DZ Dilation of Common Bile Duct with Intraluminal Device, Via Natural or Artificial Opening Endoscopic (ICD-10-PCS; 2018-06-18)
PROC: 0FBC8ZX Excision of Ampulla of Vater, Via Natural or Artificial Opening Endoscopic, Diagnostic (ICD-10-PCS; 2018-06-18)
PROC: BF101ZZ Fluoroscopy of Bile Ducts using Low Osmolar Contrast (ICD-10-PCS; 2018-06-18)
DX: K22.8 Other specified diseases of esophagus (principal); I21.4 Non-ST elevation (NSTEMI) myocardial infarction; R17 Unspecified jaundice; E87.2 Acidosis; D69.6 Thrombocytopenia, unspecified; N28.1 Cyst of kidney, acquired; K83.8 Other specified diseases of biliary tract; D64.9 Anemia, unspecified; I25.10 Atherosclerotic heart disease of native coronary artery without angina pectoris; K57.10 Diverticulosis of small intestine without perforation or abscess without bleeding; G47.00 Insomnia, unspecified; K59.00 Constipation, unspecified; I10 Essential (primary) hypertension; E78.5 Hyperlipidemia, unspecified; G25.81 Restless legs syndrome; M47.9 Spondylosis, unspecified; I44.0 Atrioventricular block, first degree; Z79.82 Long term (current) use of aspirin; Z79.899 Other long term (current) drug therapy; Z85.038 Personal history of other malignant neoplasm of large intestine; Z90.49 Acquired absence of other specified parts of digestive tract; Z96.653 Presence of artificial knee joint, bilateral; Z87.19 Personal history of other diseases of the digestive system; Z87.891 Personal history of nicotine dependence; Z92.21 Personal history of antineoplastic chemotherapy
CPT/HCPCS: 36415; 43261; 43262; 43274; 71275; 74174; 74181; 74330; 76705; 80053; 80061; 80074; 81003; 82248; 82378; 82550; 82553; 83605; 83690; 83735; 83880; 84100; 84484; 85025; 85049; 85379; 85610; 85730; 86301; 87040; 87502; 88305; 93005; 93306; 93458; 93571; 96361; 96365; 96366; 96368; 96374; 96375; 96376; 99291

== ENCOUNTER → 2018-11-29 | Outpatient (CLI) | payer MEDICARE, OTHER ==
--- NOTE | 2018-11-29 19:53 | CT ---
EXAMINATION TYPE: CT ChestAbdPelvis w con DATE OF EXAM: 11/29/2018 INDICATION: Colon cancer, observe for mets. COMPARISON: 06/12/2018 CT DLP: 1174.4 mGycm CONTRAST: Performed with Oral Contrast and with IV Contrast, patient injected with 100ml mL of Isovue 300. TECHNIQUE: Axial images at 5 mm thick sections. Reconstructed images in the coronal plane. Delayed images through the kidneys. FINDINGS: CT CHEST: Portion of the thyroid visualized is normal. No suspicious lung nodules or focal infiltrates are present. No enlarged mediastinal or hilar adenopathy is evident. The ascending aorta diameter at the level of the main pulmonary artery is 3.9 cm. The main pulmonary artery diameter at the bifurcation is 2.5 cm. Coronary artery calcification is present. CT ABDOMEN: Liver: Biliary air is evident. There is a biliary stent extending to the pancreatic head. Air is with in the gallbladder. Spleen: Normal Pancreas: Pancreatic duct is evident. Some heterogeneity is along the inferior pancreas. No discrete mass is identified. Clinical consideration for pancreatitis is recommended. Adrenal glands: The adrenal glands are normal. Gallbladder: Air-filled. Kidneys: No masses are evident. No hydronephrosis is present. Multiple stable cysts are present on the bilateral kidneys. Delayed images were obtained through the kidneys, which remain unremarkable. Aorta: Vascular calcification is within the aorta. Inferior vena cava: Normal. CT PELVIS: The ascending and proximal transverse colon is resected. The anastomosis appears unremarkable. There are loops of bowel which are incompletely distended or lack oral contrast limiting their evaluation. Appendix: Surgically absent Urinary bladder: Nondistended with limited evaluation Genitourinary structures: Prostate is unremarkable. Osseous structures: No suspicious lytic or sclerotic lesions. IMPRESSIONS: 1. No suspicious changes to suggest metastatic disease. 2. Clinical consideration for minimal pancreatic head pancreatitis is recommended. 3. Biliary air with biliary stent present. Air is within the gallbladder. 4. Renal cysts.
== END | disposition home or self-care (01) ==
LOC: RADCTMAIN 13:23
PROVIDERS: ATTEND Internal Medicine Hematology & Oncology
DX: N28.1 Cyst of kidney, acquired (principal); C18.2 Malignant neoplasm of ascending colon; Z96.89 Presence of other specified functional implants
CPT/HCPCS: 82565; 84520; 71260; 74177; 36415; Q9967

== ENCOUNTER → 2019-02-25 | Outpatient (CLI) | payer MEDICARE, OTHER ==
--- NOTE | 2019-02-25 17:45 | CT ---
EXAMINATION TYPE: CT ChestAbdPelvis w con DATE OF EXAM: 02/25/2019 INDICATION: Follow up ascending colon ca COMPARISON: 11/29/2018 CT DLP: 1926 mGycm CONTRAST: Performed with Oral Contrast and with IV Contrast, patient injected with 100 mL of Isovue 300. TECHNIQUE: Axial images at 5 mm thick sections. Reconstructed images in the coronal plane. Delayed images through the kidneys. FINDINGS: CT CHEST: Portion of the thyroid visualized is normal. No suspicious lung nodules or focal infiltrates are present. No enlarged mediastinal or hilar adenopathy is evident. The ascending aorta diameter at the level of the main pulmonary artery is 3.6 cm. The main pulmonary artery diameter at the bifurcation is 2.1 cm. Coronary artery calcifications present. CT ABDOMEN: Liver: Biliary air from the stent is evident. No suspicious masses evident. Spleen: Normal Pancreas: Normal Adrenal glands: The adrenal glands are normal. Gallbladder: Contains air but is otherwise unremarkable. Kidneys: No masses are evident. No hydronephrosis is present. Multiple bilateral renal cysts are pr esent. Delayed images were obtained through the kidneys, which remain unremarkable. Aorta: Vascular calcification is within the aorta. Inferior vena cava: Normal. CT PELVIS: There is been resection of the ascending colon. The anastomosis appears patent in the right upper lesly drant. Oral contrast extends to the distal transverse colon. Fecal debris fills the descending colon and sigmoid colon. There is some redundancy within the sigmoid colon. A few scattered diverticuli wit hin the sigmoid colon. No suspicious inflammatory changes are adjacent to suggest acute diverticuliti s There are loops of bowel which are incompletely distended or lack oral contrast limiting their eval uation. Appendix: Surgically absent Urinary bladder: Normal. Genitourinary structures: Prostate is prominent Osseous structures: No suspicious lytic or sclerotic lesions. No suspicious adenopathy is evident. IMPRESSIONS: 1. Air within the biliary tree and gallbladder from the biliary stent. 2. No suspicious changes to suggest recurrent or metastatic colon cancer. 3. Renal cysts
== END | disposition home or self-care (01) ==
LOC: RADCTMAIN 10:14
PROVIDERS: ATTEND Internal Medicine Hematology & Oncology
DX: N28.1 Cyst of kidney, acquired (principal); C18.2 Malignant neoplasm of ascending colon
CPT/HCPCS: 82565; 84520; 71260; 74177; 36415; Q9967

== ENCOUNTER → 2019-06-28 | Outpatient (CLI) | payer MEDICARE, OTHER ==
--- NOTE | 2019-06-28 12:07 | CT ---
EXAMINATION TYPE: CT ChestAbdPelvis w con DATE OF EXAM: 06/28/2019 COMPARISON: CT February 25, [address] PET [address] August 08, 2017. HISTORY: Malignant neoplasm of ascending colon CT DLP: 1291 mGycm. Automated Exposure Control for Dose Reduction was Utilized. CONTRAST: CT scan of the thorax, abdomen and pelvis is performed with oral and with IV Contrast, patient inject ed with 100 mL of Isovue 300. FINDINGS: LUNGS: Bibasilar linear atelectasis and/or scarring is redemonstrated. No new suspicious nodules or m asses. There is no pleural effusion or pneumothorax seen. The tracheobronchial tree is patent. MEDIASTINUM: There are no greater than 1 cm hilar or mediastinal lymph nodes. No cardiomegaly or pe ricardial effusion is seen. LIVER/GB: Central pneumobilia again seen. Stable subcentimeter low dense lesion anteriorly axial imag e 53 unchanged from all prior studies including June 24, 2017 axial image 51. PANCREAS: No significant abnormality is seen. SPLEEN: No significant abnormality is seen. ADRENALS: No significant abnormality is seen. KIDNEYS: Simple appearing thin-walled cyst redemonstrated scattered throughout both kidneys. BOWEL: Oral contrast was level of the proximal colon. Surgical sutures from partial colectomy and bow el anastomosis redemonstrated in the mid abdomen. Some prominence of fecal material in the proximal t o mid colon. No suspicious small bowel dilatation. Findings consistent with moderate colonic fecal st asis similar to prior. Stable 1.4 cm diverticulum near junction of second and third portion of duoden um coronal image 42. GENITAL ORGANS: No gross abnormality seen. LYMPH NODES: No new greater than 1cm abdominal or pelvic lymph nodes are appreciated. OSSEOUS STRUCTURES: Slight scoliotic curvature with multilevel spurring in the spine. Demineralizatio n is present. There is fairly advanced narrowing of both hip joints with moderate spurring and subcho ndral cystic change. Some spurring and narrowing bilateral sacroiliac joints. OTHER: No significant additional abnormality is seen. IMPRESSION: 1. No new suspicious mass to suggest neoplastic recurrence. Findings overall stable from most recent CT.
== END | disposition home or self-care (01) ==
LOC: RADCTMAIN 09:29
PROVIDERS: ATTEND Internal Medicine Hematology & Oncology
DX: C18.2 Malignant neoplasm of ascending colon (principal)
CPT/HCPCS: 82565; 84520; 71260; 74177; 36415; Q9967 ×2

== ENCOUNTER → 2019-09-08 | Outpatient (CLI) | payer MEDICARE, OTHER ==
--- NOTE | 2019-09-08 12:48 | US ---
EXAMINATION TYPE: US abdomen complete DATE OF EXAM: 09/08/2019 COMPARISON: Correlation CT 06/28/2019 CLINICAL HISTORY: 83-year-old male Abnormal liver function R94.5. TECHNIQUE: Multiple sonographic images of the abdomen are obtained. FINDINGS: EXAM MEASUREMENTS: Liver Length: 12.3 cm Gallbladder Wall: 0.5 cm CBD: 0.5 cm Spleen: 11.0 cm Right Kidney: 9.3 x 5.5 x 4.8 cm Left Kidney: 9.2 x 5.1 x 5.0 cm INTERVENTIONAL RADIOLOGY TECH NOTES: Extensive midline bowel gas technically difficult study Pancreas: Obscured by bowel gas Liver: limited visualization due to overlying bowel gas and narrow subcostal spaces, unable to visua lize the low density anterior lesion seen on CT, some dirty shadowing relating to central pneumobilia Gallbladder: Mildly thickened wall with some internal debris Evidence for sonographic Dawson's sign: Not reported CBD: wnl Spleen: wnl Right Kidney: inferior cyst noted measuring 3.2 x 2.9 x 3.1cm. No hydronephrosis. Left Kidney: Inferior pole obscured by bowel gas, superior pole cyst measuring 2.5 x 2.6 x 2.2cm. No hydronephrosis seen. Upper IVC: wnl Abd Aorta: Mostly obscured by overlying bowel gas, distal portion only seen measuring up to 2.1 cm. IMPRESSION: 1. Very limited exam due to subcostal imaging of some structures and extensive bowel gas shadowing. 2. Known pneumobilia. The low density anterior liver lesion seen on CT of 06/28/2019 is not seen on the present exam. 3. Gallbladder wall thickening and some internal debris. If concern for acute or chronic cholecystiti s, HIDA scan would be helpful.
== END | disposition home or self-care (01) ==
LOC: RADUSWWP 08:58
PROVIDERS: ATTEND Internal Medicine Hematology & Oncology
DX: R14.3 Flatulence (principal); K83.8 Other specified diseases of biliary tract; K82.8 Other specified diseases of gallbladder; R94.5 Abnormal results of liver function studies
CPT/HCPCS: 76700

== ENCOUNTER → 2019-11-21 | Outpatient (CLI) | payer MEDICARE, OTHER | END | disposition home or self-care (01) | LOC: LABWHC1 07:51 | PROVIDERS: ATTEND Physician Assistant | DX: Z01.818 Encounter for other preprocedural examination (principal); Z11.59 Encounter for screening for other viral diseases ==

== ENCOUNTER → 2019-11-28 | Outpatient (CLI) | payer MEDICARE, OTHER ==
--- NOTE | 2019-11-28 13:29 | CT ---
EXAMINATION TYPE: CT ChestAbdPelvis w con DATE OF EXAM: 11/28/2019 COMPARISON: CT 06/28/2019 HISTORY: Follow up scan per patient. C 18.[address] DLP: 1289.5 mGycm Automated exposure control for dose reduction was used. CONTRAST: CT scan of the chest, abdomen and pelvis is performed with Oral Contrast and with IV Contrast, patien t injected with 100 mL of Isovue 300. FINDINGS: LUNGS: The lungs are grossly clear, there is no concerning parenchymal mass or nodule identified. T here is no pleural effusion or pneumothorax seen. The tracheobronchial tree is patent. MEDIASTINUM: There are no greater than 1 cm hilar or mediastinal lymph nodes. No pericardial effusi on is seen. There are coronary artery calcifications present, possible mitral annulus calcifications AORTA: No significant abnormality is seen. OTHER: No additional significant abnormality is seen. LIVER/GB: Pneumobilia is present, findings in the liver are stable. Gallbladder isn't air filled. PANCREAS: There is a stent coursing along the pancreatic duct the small bowel. SPLEEN: No significant abnormality is seen. ADRENALS: No significant abnormality is seen. KIDNEYS: No significant interval change is seen. REPRODUCTIVE ORGANS: No gross abnormality seen. BOWEL: Retained stool present throughout the distribution of the colon, postop changes are present a s on prior. FREE AIR: No Free Air visible. ASCITES: None seen. RETROPERITONEAL ADENOPATHY: No retroperitoneal adenopathy is seen. LYMPH NODES: No greater than 1 cm abdominal or pelvic lymph nodes are appreciated. URINARY BLADDER: No significant abnormality is seen. PELVIC ADENOPATHY: None visualized. OSSEOUS STRUCTURES: No significant abnormality is seen. IMPRESSION: There is been interval placement of a stent along the pancreatic duct as described. Posto p changes.
== END | disposition home or self-care (01) ==
LOC: RADCTMAIN 09:52
PROVIDERS: ATTEND Internal Medicine Hematology & Oncology
DX: C18.2 Malignant neoplasm of ascending colon (principal); Z98.890 Other specified postprocedural states; Z96.89 Presence of other specified functional implants
CPT/HCPCS: 82565; 84520; 71260; 74177; 36415; Q9967

== ENCOUNTER → 2020-07-31 | Outpatient (CLI) | payer MEDICARE, OTHER ==
--- NOTE | 2020-07-31 14:21 | CT ---
EXAMINATION TYPE: CT ChestAbdPelvis w con DATE OF EXAM: 07/31/2020 COMPARISON: CT 11/28/2019 HISTORY: Colon cancer CT DLP: 1746 mGycm Automated exposure control for dose reduction was used. CONTRAST: CT scan of the chest, abdomen and pelvis is performed with Oral Contrast and with IV Contrast, patien t injected with 80 mL of Isovue 300. FINDINGS: LUNGS: The lungs are grossly clear, there is no concerning parenchymal mass or nodule identified. T here is no pleural effusion or pneumothorax seen. The tracheobronchial tree is patent. MEDIASTINUM: There are no greater than 1 cm hilar or mediastinal lymph nodes. No pericardial effusi on is seen. AORTA: No significant abnormality is seen. OTHER: There are coronary artery calcifications. There is a small hiatal hernia. LIVER/GB: No significant interval change is appreciated, pneumobilia is again noted, patient is post cholecystectomy, low liver attenuation may be due to hepatic steatosis. PANCREAS: Stent is no longer seen seen. SPLEEN: No significant abnormality is seen. ADRENALS: No significant abnormality is seen. KIDNEYS: No significant interval change is seen. REPRODUCTIVE ORGANS: No gross abnormality seen. 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 Stool present throughout th e distribution of the colon. Correlate for fecal stasis. FREE AIR: No Free Air visible. ASCITES: None seen. RETROPERITONEAL ADENOPATHY: No retroperitoneal adenopathy is seen. LYMPH NODES: No greater than 1 cm abdominal or pelvic lymph nodes are appreciated. URINARY BLADDER: No significant abnormality is seen. PELVIC ADENOPATHY: None visualized. OSSEOUS STRUCTURES: No significant abnormality is seen. IMPRESSION: Postop changes. Interval stent removal.
== END ==
LOC: RADCTMAIN 11:37
PROVIDERS: ATTEND Internal Medicine Hematology & Oncology
DX: C18.9 Malignant neoplasm of colon, unspecified (principal); Z03.89 Encounter for observation for other suspected diseases and conditions ruled out
CPT/HCPCS: 82565; 84520; 71260; 74177; 36415; Q9967 ×2

== ENCOUNTER → 2021-02-18 | Outpatient (CLI) | payer MEDICARE, OTHER ==
--- NOTE | 2021-02-18 15:39 | CT ---
EXAMINATION TYPE: CT ChestAbdPelvis w con DATE OF EXAM: 02/18/2021 COMPARISON: Most recent CT July 31, 2020 and older CTs HISTORY: Colon cancer of ascending colon diagnosed 2018. CT DLP: 1097.6 mGycm. Automated Exposure Control for Dose Reduction was Utilized. CONTRAST: CT scan of the thorax, abdomen and pelvis is performed with IV Contrast, patient injected with 100 mL of Isovue M300. FINDINGS: LUNGS: Mild Bibasilar linear atelectasis and/or scarring is redemonstrated. No new suspicious nodules or masses. There is no pleural effusion or pneumothorax seen. The tracheobronchial tree is patent. MEDIASTINUM: There are no new greater than 1 cm hilar or mediastinal lymph nodes. No cardiomegaly o r pericardial effusion is seen. Coronary artery calcification redemonstrated. Calcification about th e level of the mitral and aortic valve again seen. LIVER/GB: Central pneumobilia again seen. Stable subcentimeter low dense lesion anteriorly axial imag e 51 unchanged from prior studies. Gallbladder surgically absent. PANCREAS: No significant abnormality is seen. SPLEEN: No significant abnormality is seen. ADRENALS: No significant abnormality is seen. KIDNEYS: Simple appearing thin-walled cysts redemonstrated scattered throughout both kidneys. No hydr onephrosis seen bilaterally. BOWEL: Oral contrast reaches level of splenic flexure. Surgical sutures from partial colectomy and diomedes wel anastomosis redemonstrated in the right mid abdomen. Some prominence of fecal material near the s plenic flexure on current study. No suspicious small bowel dilatation. Findings consistent with moder ate colonic fecal stasis similar to prior. Stable 1.5 cm diverticulum near junction of second and thi rd portion of duodenum coronal image 41 current study adjacent to central pneumobilia. GENITAL ORGANS: No gross abnormality seen. LYMPH NODES: No new greater than 1cm abdominal or pelvic lymph nodes are appreciated. OSSEOUS STRUCTURES: Slight scoliotic curvature with multilevel spurring in the spine. Demineralizatio n is present. There is fairly advanced narrowing of both hip joints with moderate spurring and subcho ndral cystic change. Some spurring and narrowing bilateral sacroiliac joints is redemonstrated. OTHER: Moderate calcified plaque of the aorta extends into branch vessels. IMPRESSION: No new suspicious mass to suggest neoplastic recurrence. Findings overall stable from most recent CT .
== END | disposition home or self-care (01) ==
LOC: RADCTMAIN 12:43
PROVIDERS: ATTEND Internal Medicine Hematology & Oncology
DX: N28.1 Cyst of kidney, acquired (principal); K57.30 Diverticulosis of large intestine without perforation or abscess without bleeding; Z85.038 Personal history of other malignant neoplasm of large intestine
CPT/HCPCS: 82565; 84520; 71260; 74177; 36415; Q9967 ×2

== ENCOUNTER → 2021-08-19 | Outpatient (CLI) | payer MEDICARE, OTHER ==
--- NOTE | 2021-08-19 20:45 | CT ---
EXAMINATION TYPE: CT ChestAbdPelvis w con DATE OF EXAM: 08/19/2021 COMPARISON: CT dated 02/18/2021 HISTORY: f/u colon ca CT DLP: 1431.1 mGycm Automated exposure control for dose reduction was used. CONTRAST: CT scan of the chest, abdomen and pelvis is performed with Oral Contrast and with IV Contrast, patien t injected with 100 mL of Isovue 300. FINDINGS: LUNGS: Tiny filling defect is seen in the right upper lobe bronchus measuring 3 mm which could repres ent intraluminal secretions, attention follow-up. Bilateral basal peripheral pulmonary reticulations, appreciated previously. No definite new lung nodule identified. No pleural effusion. MEDIASTINUM: Unchanged heart and arterial atherosclerotic calcifications. No pericardial effusion. No pathologically enlarged lymph nodes in the chest. OTHER: No aggressive bone lesion. LIVER/GB: Hepatic steatosis. With this limitation, no definite hepatic focal lesion identified. Previ ous cholecystectomy with persistent pneumobilia. PANCREAS: No significant abnormality is seen. SPLEEN: No significant abnormality is seen. ADRENALS: No significant abnormality is seen. KIDNEYS: Stable bilateral renal cysts. Left perinephric fat stranding/reactive fluid, appreciated pre viously. Grossly unremarkable urinary bladder. BOWEL: Unremarkable stomach. Suspected small duodenal diverticulum, otherwise unremarkable duodenum. Right hemicolectomy with ileocolic anastomosis, unremarkable. Unremarkable remainder of the small diomedes wel. Significant fecal loading of the rectum and most of the colon suggestive of constipation. No forrest ss colonic mass however a small lesion cannot be excluded. REPRODUCTIVE ORGANS: No gross abnormality seen. LYMPH NODES: No greater than 1 cm abdominal or pelvic lymph nodes are appreciated. OSSEOUS STRUCTURES: No aggressive bone lesion. OTHER: Extensive arterial atherosclerotic calcifications with significant stenosis of the origin of t he celiac trunk yet patent distally. No sizable ascites. IMPRESSION: 3 mm right main bronchus tiny filling defect which could represent intraluminal secretions, attention on follow-up. Otherwise no evidence of local tumor recurrence or metastatic disease seen in the chest, abdomen or t he pelvis. Incidental findings as described above.
== END | disposition home or self-care (01) ==
LOC: RADCTMAIN 13:23
PROVIDERS: ATTEND Internal Medicine Hematology & Oncology
DX: C18.2 Malignant neoplasm of ascending colon (principal); R91.8 Other nonspecific abnormal finding of lung field
CPT/HCPCS: 82565; 84520; 71260; 74177; 36415; Q9967

== ENCOUNTER → 2022-02-21 | Outpatient (CLI) | payer MEDICARE, OTHER ==
--- NOTE | 2022-02-23 08:38 | CT ---
EXAMINATION TYPE: CT ChestAbdPelvis w con DATE OF EXAM: 02/21/2022 COMPARISON: Prior CT August 19, 2021 and older CTs HISTORY: Colon cancer of ascending colon diagnosed 2018. CT DLP: 1912 mGycm. Automated Exposure Control for Dose Reduction was Utilized. CONTRAST: CT scan of the thorax, abdomen and pelvis is performed with oral and with IV Contrast, patient inject ed with 70 mL of Isovue 300. FINDINGS: LUNGS: Mild Bibasilar linear atelectasis and/or scarring is redemonstrated. No new suspicious greater than 5 mm nodules or masses. There is no pleural effusion or pneumothorax seen. The tracheobronchia l tree is patent. MEDIASTINUM: There are no new greater than 1 cm hilar or mediastinal lymph nodes. No cardiomegaly o r pericardial effusion is seen. Coronary artery calcification redemonstrated. Calcification at the l evel of the mitral and aortic valve again seen. LIVER/GB: Central pneumobilia again seen. Stable subcentimeter low dense lesion anteriorly axial imag e 59 is unchanged from prior studies. Gallbladder surgically absent. PANCREAS: No significant abnormality is seen. SPLEEN: No significant abnormality is seen. ADRENALS: No significant abnormality is seen. KIDNEYS: Several simple appearing thin-walled cysts are redemonstrated scattered throughout both kidn eys. No hydronephrosis seen bilaterally. BOWEL: Oral contrast reaches level of mid transverse colon. Surgical sutures from partial proximal co lectomy and bowel anastomosis redemonstrated in the right mid abdomen. Prominent of fecal material ne ar the splenic flexure on current study. No suspicious small bowel dilatation. Findings consistent wi th moderate colonic fecal stasis similar to prior. Stable 1.6 cm diverticulum near junction of second and third portion of duodenum axial image 70 current study adjacent to central pneumobilia. GENITAL ORGANS: No gross abnormality seen. LYMPH NODES: No new greater than 1cm abdominal or pelvic lymph nodes are appreciated. OSSEOUS STRUCTURES: Multilevel spurring in the spine is redemonstrated. There is fairly advanced narr owing of both hip joints with moderate spurring and subchondral cystic change. Some spurring and narr owing bilateral sacroiliac joints is redemonstrated. OTHER: Moderate calcified plaque of the ectatic aorta extends into branch vessels is redemonstrated. IMPRESSION: No new suspicious mass to suggest neoplastic recurrence. Findings overall stable from most recent CT s.
== END | disposition home or self-care (01) ==
LOC: RADCTMAIN 09:02
PROVIDERS: ATTEND Internal Medicine Hematology & Oncology
DX: C18.2 Malignant neoplasm of ascending colon (principal)
CPT/HCPCS: 82565; 84520; 71260; 74177; 36415; Q9967 ×2

== ENCOUNTER → 2022-08-22 | Outpatient (CLI) | payer MEDICARE, OTHER ==
--- NOTE | 2022-08-22 15:16 | CT ---
EXAMINATION TYPE: CT ChestAbdPelvis w con DATE OF EXAM: 08/22/2022 COMPARISON: 02/21/2022 HISTORY: Follow up to colon CA CT DLP: 1090.3 mGycm Automated exposure control for dose reduction was used. CONTRAST: CT scan of the chest, abdomen and pelvis is performed with Oral Contrast and with IV Contrast, patien t injected with 70 mL of Isovue 300. FINDINGS: CT chest: The lungs are clear of airspace consolidation or abnormal interstitial density. There are no suspicious lung masses or nodules. There is no pleural effusion, pleural thickening or pneumothorax. The great vessels of the chest are normal and there is no mediastinal, hilar or axillary adenopathy. There are no focal osseous abnormalities within the bony thorax. CT abdomen and pelvis: There are postsurgical changes in the right colon. The bowel loops are nondilated and there is no tamra dence of obstruction. There are no inflammatory changes in the bowel wall or mesentery. There is no f ree intraperitoneal air or fluid. There is pneumobilia which has been seen on multiple prior studies. There are surgical absence of the gallbladder. There are no focal masses within the liver, pancreas, spleen or adrenal glands. The kidneys excrete contrast promptly and symmetrically is no solid renal mass or process. There are multiple simple cortical cysts. Caliber of the abdominal aorta is normal. There is no pelvic mass, free fluid, abscess or adenopathy. There is moderate amount of stool within the rectum. No focal osseous abnormalities are seen. The bowel wall soft tissues are normal. IMPRESSION: No evidence of metastatic disease in the chest, abdomen or pelvis. Exam is stable compared to the p rior study.
== END | disposition home or self-care (01) ==
LOC: RADCTMAIN 11:51
PROVIDERS: ATTEND Internal Medicine Hematology & Oncology
DX: C18.2 Malignant neoplasm of ascending colon (principal); Z03.89 Encounter for observation for other suspected diseases and conditions ruled out
CPT/HCPCS: 82565; 84520; 71260; 74177; 36415; Q9967

== ENCOUNTER 2024-10-29 12:44 | Emergency (ER) | payer MEDICARE, OTHER ==
--- NOTE | 2024-10-29 13:32 | ED ---
Wound/Laceration HPI - General Chief Complaint: Wound/Laceration Stated Complaint: L Finger Laceration Time Seen by Provider: 10/29/24 13:20 Source: patient, family, RN notes reviewed Mode of arrival: ambulatory Limitations: no limitations - History of Present Illness Initial Comments: This is an 88-year-old male who presents to the emergency department for a laceration to the left index finger. States that he cut this on a pair of hedge tremors earlier today. He is concerned that he has been unable to get the bleeding to stop. This is slightly painful. Not taking any blood thinners. Tetanus vaccine is up-to-date. - Related Data Home Medications Medication Instructions Recorded Confirmed Atorvastatin [Lipitor] 20 mg PO DAILY@1700 03/29/15 06/12/18 Lisinopril-Hctz 20-25 mg 1 each PO DAILY@1700 03/29/15 06/12/18 [Zestoretic 20-25] Aspirin [Adult Low Dose Aspirin EC] 81 mg PO 07/09/17 Cranberry Fruit Extract [Cranberry] 200 mg PO DAILY 06/12/18 06/12/18 Multivitamins, Thera [Multivitamin 1 tab PO DAILY 06/12/18 06/12/18 (formulary)] Omeprazole 20 mg PO DAILY 06/12/18 06/12/18 Previous Rx's Medication Instructions Recorded Clopidogrel [Plavix] 75 mg PO DAILY #30 tab 06/18/18 Metoprolol Tartrate [Lopressor] 25 mg PO BID #60 tab 06/18/18 Allergies Allergy/AdvReac Type Severity Reaction Status Date / Time No Known Allergies Allergy Verified 10/29/24 12:58 Review of Systems ROS Statement: Those systems with pertinent positive or pertinent negative responses have been documented in the HPI. ROS Other: All systems not noted in ROS Statement are negative. Past Medical History Past Medical History: Hyperlipidemia, Hypertension Additional Past Medical History / Comment(s): restless leg before chemo, havent had in weeks. Right hemicolectomy History of Any Multi-Drug Resistant Organisms: None Reported Past Surgical History: Back Surgery, Joint Replacement, Orthopedic Surgery Additional Past Surgical History / Comment(s): BILATERAL KNEE REPLACEMENTS, 2 FATTY TUMORS REMOVED FROM STOMACH, had colon cancer with surgical removal and chemo. last chemo was 4 weeks ago. Past Anesthesia/Blood Transfusion Reactions: No Reported Reaction Past Psychological History: No Psychological Hx Reported Smoking Status: Never smoker Past Alcohol Use History: None Reported Past Drug Use History: None Reported - Past Family History Mother Family Medical History: No Reported History General Exam Limitations: no limitations General appearance: alert, in no apparent distress Head exam: Present: atraumatic, normocephalic, normal inspection Respiratory exam: Present: normal lung sounds bilaterally. Absent: respiratory distress, wheezes, rales, rhonchi, stridor Cardiovascular Exam: Present: regular rate, normal rhythm Neurological exam: Present: alert, oriented X3, CN II-XII intact Psychiatric exam: Present: normal affect, normal mood Course Vital Signs 10/29/24 12:59 Temperature 97.5 F L Pulse Rate 93 Respiratory 18 Rate Blood Pressure 194/98 O2 Sat by Pulse 98 Oximetry Procedures - Laceration Laceration #1 Consent Obtained: verbal consent Indication: laceration Site: other (left index finger) Size (cm): 3 Description: linear, flap Depth: simple, single layer Anesthetic Used: lidocaine 1% Anesthesia Technique: local infiltration Amount (mls): 4 Pre-repair: wound explored, irrigated extensively Type of Sutures: nylon Size of Sutures: 5-0 Number of Sutures: 7 Technique: simple, interrupted Medical Decision Making - Medical Decision Making This is an 88 year old male who presents to the emergency department for a laceration to the left index finger. Was pt. sent in by a medical professional or institution? @ -No Did you speak to anyone other than the patient for history? @ -No Did you review nursing and triage notes? @ -Yes, and I agree, it is accurate with regards to the patient's symptoms. Were old charts reviewed? @ -No Differential Diagnosis? @ -Laceration, abrasion, burn, cellulitis, this is not meant to be an all- inclusive list. EKG interpreted by me (3pts min.)? @ -Not obtained X-rays interpreted by me (1pt min.)? @ -Not obtained CT interpreted by me (1pt min.)? @ -Not obtained U/S interpreted by me (1pt. min.)? @ -Not obtained What testing was considered but not performed? (CT, X-rays, U/S, labs)? Why? @ -None What meds were considered but not given? Why? @ -None Did you discuss the management of the patient with other professionals? @ -No Did you reconcile home meds? @ -No Was smoking cessation discussed for >3mins.? @ -No Was critical care preformed (if so, how long)? @ -No Were there social determinants of health that impacted care today? How? (Homelessness, low income, unemployed, alcoholism, drug addiction, transportation, low edu. Level, literacy, decrease access to med. care, shelter, rehab)? @ -No Was there de-escalation of care discussed even if they declined? (Discuss DNR or withdrawal of care, Hospice)? @ -No What co-morbidities impacted this encounter? (DM, HTN, Smoking, COPD, CAD, Cancer, CVA, Hep., AIDS, mental health diagnosis, sleep apnea, morbid obesity)? @ -None Was patient admitted / discharged? @ -Discharged. The laceration was cleansed and repaired with sutures. LET was applied initially to help control the bleeding followed by local infiltration prior to sutures. Tetanus vaccine is already up-to-date. Advised that the sutures will need to be removed in 7 to 10 days. Advised Tylenol as needed for discomfort. Patient discharged home in stable condition. Case discussed with ED attending Dr. Newton. Return precautions reviewed in depth, the patient is instructed to return to the emergency department with any new, worsening, or concerning symptoms. Patient verbalized understanding. Undiagnosed new problem with uncertain prognosis? @ -None Drug Therapy requiring intensive monitoring for toxicity (Heparin, Nitro, Insulin, Cardizem)? @ -None Were any procedures done? @ -Laceration repair with sutures Diagnosis/symptom? @ -Laceration Acute, or Chronic, or Acute on Chronic? @ -Acute Uncomplicated (without systemic symptoms) or Complicated (systemic symptoms)? @ -Uncomplicated Side effects of treatment? @ -None Exacerbation, Progression, or Severe Exacerbation] @ -Not applicable Poses a threat to life or bodily function? @ -No Disposition Clinical Impression: Laceration Disposition: HOME SELF-CARE Instructions (If sedation given, give patient instructions): Care For Your Stitches (ED) Additional Instructions: Return to the emergency department with any new, worsening, or concerning symptoms. Take Tylenol as needed for discomfort. The stitches will need to be removed in 7 to 10 days. You can have that done here, with your primary care provider, or at an urgent care. Is patient prescribed a controlled substance at d/c from ED?: No Referrals: Kathia Valdovinos MD [Primary Care Provider] - 1-2 days Time of Disposition: 14:26
[2024-10-29] MEDS: LIDOCAINE/EPINEPHR/TETRACAINE 5 ML BOTTLE TOPICAL ONE (13:36)
[2024-10-29] MEDS: LIDOCAINE 1% INJ 10MG/ML (20 ML MDV) SQ ONE (13:36)
[2024-10-29 14:37] VITALS: BP 176/89; PULSE 86; RESP 20; TEMP 98
== END 2024-10-29 14:35 | disposition home or self-care (01) ==
LOC: EC 12:44 → SUPCPDRO 12:44 → EC 14:35
DX: S61.211A Laceration without foreign body of left index finger without damage to nail, initial encounter (principal); W26.9XXA Contact with unspecified sharp object(s), initial encounter
CPT/HCPCS: 99282; 12002; J2003